=== PATIENT | male | born 1960 | race American Indian/Alaskan Native ===

== ENCOUNTER 2017-02-09 18:18 | Emergency (ER) | payer BC ==
[2017-02-09] MEDS ORDERED: DiphenhydrAMINE 50 mg/ml Inj IVP STA (18:21)
--- NOTE | 2017-02-09 18:24 | ED PDOC ---
Arrival/HPI - General Time Seen by Provider: 02/09/17 18:20 Historian: Patient - History of Present Illness Narrative History of Present Illness (Text): 02/09/17 18:23 56 year old male with a past medical history that includes multiple allergies presents to the emergency department with suspected allergic reaction. Patient reports he is allergic to pepper and may have ate chicken with pepper in it prior to arrival. Patient reports diffuse pruritis and watering of eyes. No fever or other complaints. Patient reports feeling baseline prior to eating chicken. Time/Duration: Prior to Arrival Symptom Onset: Sudden Symptom Course: Unchanged Activities at Onset: Eating Modifying Factors (Text): None Past Medical History - Provider Review Nursing Documentation Reviewed: Yes - Infectious Disease Hx of Infectious Diseases: None - Cardiac Hx Cardiac Disorders: Yes Hx Hypertension: Yes - Pulmonary Hx Respiratory Disorders: Yes Hx Bronchitis: Yes - Neurological Hx Neurological Disorder: Yes Hx Seizures: Yes (As a baby) - HEENT Hx HEENT Disorder: No - Renal Hx Renal Disorder: No - Endocrine/Metabolic Hx Endocrine Disorders: No - Hematological/Oncological Hx Blood Disorders: No - Integumentary Hx Dermatological Disorder: No - Musculoskeletal/Rheumatological Hx Musculoskeletal Disorders: No Hx Falls: No Hx Unsteady Gait: No - Gastrointestinal Hx Gastrointestinal Disorders: Yes (umbilical hernia no sx) Hx Gastroesophageal Reflux: Yes - Genitourinary/Gynecological Hx Genitourinary Disorders: No - Psychiatric Hx Psychophysiologic Disorder: No Hx Substance Use: No - Surgical History Hx Cardiac Catheterization: Yes Hx Orthopedic Surgery: Yes (arthoscopic 1 yr ago r knee) Other/Comment: cyst removed from below left ear negative - Anesthesia Hx Anesthesia: No Hx Anesthesia Reactions: No Hx Malignant Hyperthermia: No - Suicidal Assessment Feels Threatened In Home Enviroment: No Family/Social History - Physician Review Nursing Documentation Reviewed: Yes Family/Social History: Unknown Family HX Smoking Status: Never Smoked Hx Alcohol Use: Yes (social) Hx Substance Use: No Allergies/Home Meds Allergies/Adverse Reactions: Allergies apple Allergy (Verified 02/09/17 18:27) ITCHING fenofibrate nanocrystallized [From Tricor] Allergy (Verified 02/09/17 18:27) ANAPHYLAXIS fenofibrate,micronized [From Tricor] Allergy (Verified 02/09/17 18:27) ANAPHYLAXIS grape Allergy (Verified 02/09/17 18:27) ITCHING ORANGE Allergy (Verified 02/09/17 18:27) ITCHING Penicillins Allergy (Verified 02/09/17 18:27) SWELLING tomato Allergy (Verified 02/09/17 18:27) ITCHING jello Allergy (Uncoded 02/09/17 18:27) ANAPHYLAXIS onions Allergy (Uncoded 02/09/17 18:27) ITCHING pepper Allergy (Uncoded 02/09/17 18:27) ITCHING BLACK PEPPER CONTRAST DYE Adverse Reaction (Severe, Uncoded 02/09/17 18:27) ITCHING TREMORS PEANUT Adverse Reaction (Severe, Uncoded 02/09/17 18:27) SHORTNESS OF BREATH Home Medications: Home Meds Medication Instructions Recorded Confirmed Esomeprazole Magnesium [Nexium] 40 mg PO DAILY 06/04/15 11/16/16 Ezetimibe [Zetia] 10 mg PO DAILY 06/04/1517 Rosuvastatin Calcium [Crestor] 20 mg PO DAILY 04/02/16 11/16/16 Valsartan [Diovan] 320 mg PO DAILY 04/02/16 11/16/16 Review of Systems - Physician Review All systems were reviewed & negative as marked: Yes - Review of Systems Constitutional: absent: Fevers Eyes: Other (Watering of eyes) Respiratory: absent: SOB Cardiovascular: absent: Chest Pain Skin: Pruritis Physical Exam Vital Signs Reviewed: Yes Vital Signs Temp Pulse Resp BP Pulse Ox 02/09/17 19:34 97.8 F 97 H 16 139/81 98 02/09/17 18:50 96 H 20 126/82 96 02/09/17 18:26 98.1 F 101 H 17 133/73 98 Temperature: Afebrile Blood Pressure: Normal Pulse: Tachycardic Respiratory Rate: Normal Appearance: Positive for: Well-Appearing, Non-Toxic, Comfortable Pain Distress: None Mental Status: Positive for: Alert and Oriented X 3 - Systems Exam Head: Present: Atraumatic, Normocephalic Pupils: Present: PERRL Extroacular Muscles: Present: EOMI Conjunctiva: Present: Injected (Mild) Mouth: Present: Moist Mucous Membranes Pharnyx: Present: Normal. No: ERYTHEMA, EXUDATE, TONSILS ENLARGED, Peritonsilar Swelling, Uvular Deviation Neck: Present: Normal Range of Motion Respiratory/Chest: Present: Clear to Auscultation, Good Air Exchange. No: Respiratory Distress, Accessory Muscle Use Cardiovascular: Present: Regular Rate and Rhythm, Normal S1, S2. No: Murmurs Abdomen: Present: Normal Bowel Sounds. No: Tenderness, Distention, Peritoneal Signs Back: Present: Normal Inspection Upper Extremity: Present: Normal Inspection. No: Cyanosis, Edema Lower Extremity: Present: Normal Inspection. No: Edema Neurological: Present: GCS=15, CN II-XII Intact, Speech Normal Skin: Present: Warm, Dry, Normal Color. No: Rashes Psychiatric: Present: Alert, Oriented x 3, Normal Insight, Normal Concentration Medical Decision Making ED Course and Treatment: Impression: 56 year old male with a past medical history that includes multiple allergies presents to the emergency department with suspected allergic reaction Differential Diagnosis include but are not limited to: Plan: -- Benadryl, Pepcid, Soulmedrol -- Reassess and disposition Prior Visits: Notes and results from previous visits were reviewed. Patient last seen in ED on 11/16/16 for chest pain and discharged home. Progress Notes: 02/09/17 19:22 Patient states he is feeling better, asking for discharge paperwork. Patient states he does not want to wait in the ER for further evaluation. Advised pt to follow up with PMD or return if symptoms worsen. Patient stable for discharge. - Medication Orders Current Medication Orders: Discontinued Medications Diphenhydramine HCl (Benadryl) 50 mg IVP STAT STA Stop: 02/09/17 18:22 Last Admin: 02/09/17 18:30 Dose: 50 MG IVP Administration Document 02/09/17 18:30 [facility] (Rec: 02/09/17 18:30 [facility] [id number]) Charges for Administration # of IVP Administrations 1 Famotidine (Pepcid) 20 mg IVP STAT STA Stop: 02/09/17 18:22 Last Admin: 02/09/17 18:31 Dose: 20 MG IVP Administration Document 02/09/17 18:31 [facility] (Rec: 02/09/17 18:31 [facility] [id number]) Charges for Administration # of IVP Administrations 1 Famotidine (Pepcid) Confirm Administered Dose 20 mg .ROUTE .STK-MED ONE Stop: 02/09/17 18:24 Methylprednisolone (Solu-Medrol) 125 mg IVP STAT STA Stop: 02/09/17 18:22 Last Admin: 02/09/17 18:31 Dose: 125 MG IVP Administration Document 02/09/17 18:31 [facility] (Rec: 02/09/17 18:31 [facility] [id number]) Charges for Administration # of IVP Administrations 1 - Scribe Statement The provider has reviewed the documentation as recorded by the Merry Carrasco Provider Scribe Attestation: All medical record entries made by the Judyibraman were at my direction and personally dictated by me. I have reviewed the chart and agree that the record accurately reflects my personal performance of the history, physical exam, medical decision making, and the department course for this patient. I have also personally directed, reviewed, and agree with the discharge instructions and disposition. Disposition/Present on Arrival - Present on Arrival Any Indicators Present on Arrival: No History of DVT/PE: No History of Uncontrolled Diabetes: No Urinary Catheter: No History Surgical Site Infection Following: None - Disposition Have Diagnosis and Disposition been Completed?: Yes Diagnosis: Allergic reaction Disposition: HOME/ ROUTINE Disposition Time: 09:00 Patient Problems: Current Active Problems Problem Status Diagnosed Influenza A Acute Condition: STABLE Discharge Instructions (ExitCare): Allergies (ED) Additional Instructions: please follow up with your doctor. return to er with worsening symptoms or concerns. Prescriptions: DiphenhydrAMINE [Benadryl] 25 mg PO Q6 PRN #20 cap PRN Reason: Itching / Pruritus Epinephrine [Epipen] 0.3 mg IJ ONCE PRN #1 auto.injct PRN Reason: Anaphylaxis Prednisone 50 mg PO DAILY #5 tablet Referrals: Marcela Marcos MD [Primary Care Provider] - Follow up with primary
[2017-02-09 18:29] VITALS: BMI 42.8
[2017-02-09 19:37] VITALS: BP 139/81; PULSE 97; RESP 16; TEMP 97.8; O2SAT 98
== END 2017-02-09 19:36 | disposition home or self-care (01) ==
LOC: ED 18:18
DX: T78.1XXA Other adverse food reactions, not elsewhere classified, initial encounter (principal); X58.XXXA Exposure to other specified factors, initial encounter
CPT/HCPCS: 96374; 96375; 99283; J1200; J2930

== ENCOUNTER 2017-05-20 13:30 | Emergency (ER) | payer BC ==
[2017-05-20 13:30] VITALS: BMI 41.6
[2017-05-20 13:50] VITALS: RESP 18; TEMP 98.2; O2SAT 96
[2017-05-20] MEDS ORDERED: Oxycodone/Acetaminophen 5/325 mg Tab PO STA (14:40)
--- NOTE | 2017-05-20 14:46 | ED PDOC ---
Arrival/HPI - General Chief Complaint: Back Pain Time Seen by Provider: 05/20/17 14:37 Historian: Patient - History of Present Illness Narrative History of Present Illness (Text): 05/20/17 14:40 A 56 year old male, whose past medical history includes multiple allergies, corneal ulcer, and hypertension presents to the emergency department after being injured when trying to be removed from MRI machine. The patient reports that he was getting a MRI for his lower back ordered by his primary doctor. The hyperbaric tech noted that he was too heavy for the machine and upon removal from the machine the tech pulled on the patient and further injured his back. The patient is complaining of pain that is radiating down his right leg. He denies any bowel and bladder dysfunction, or any other complaints at this time. Time/Duration: Prior to Arrival Symptom Onset: Other Symptom Course: Unchanged Severity Level: Mild Activities at Onset: Other Context: Other (In MRI machine) Past Medical History - Provider Review Nursing Documentation Reviewed: Yes - Infectious Disease Hx of Infectious Diseases: None - Cardiac Hx Cardiac Disorders: Yes Hx Hypertension: Yes - Pulmonary Hx Respiratory Disorders: Yes Hx Bronchitis: Yes - Neurological Hx Neurological Disorder: Yes Hx Seizures: Yes (As a baby) - HEENT Hx HEENT Disorder: No - Renal Hx Renal Disorder: No - Endocrine/Metabolic Hx Endocrine Disorders: No - Hematological/Oncological Hx Blood Disorders: No - Integumentary Hx Dermatological Disorder: No - Musculoskeletal/Rheumatological Hx Musculoskeletal Disorders: No Hx Falls: No Hx Unsteady Gait: No - Gastrointestinal Hx Gastrointestinal Disorders: Yes (umbilical hernia no sx) Hx Gastroesophageal Reflux: Yes - Genitourinary/Gynecological Hx Genitourinary Disorders: No - Psychiatric Hx Psychophysiologic Disorder: No Hx Substance Use: No - Surgical History Hx Cardiac Catheterization: Yes Hx Orthopedic Surgery: Yes (arthoscopic 1 yr ago r knee) Other/Comment: cyst removed from below left ear negative - Anesthesia Hx Anesthesia: No Hx Anesthesia Reactions: No Hx Malignant Hyperthermia: No - Suicidal Assessment Feels Threatened In Home Enviroment: No Family/Social History - Physician Review Nursing Documentation Reviewed: Yes Family/Social History: Unknown Family HX Smoking Status: Never Smoked Hx Alcohol Use: Yes (social) Hx Substance Use: No Allergies/Home Meds Allergies/Adverse Reactions: Allergies apple Allergy (Verified 02/09/17 18:27) ITCHING fenofibrate nanocrystallized [From Tricor] Allergy (Verified 02/09/17 18:27) ANAPHYLAXIS fenofibrate,micronized [From Tricor] Allergy (Verified 02/09/17 18:27) ANAPHYLAXIS grape Allergy (Verified 02/09/17 18:27) ITCHING ORANGE Allergy (Verified 02/09/17 18:27) ITCHING Penicillins Allergy (Verified 02/09/17 18:27) SWELLING tomato Allergy (Verified 02/09/17 18:27) ITCHING jello Allergy (Uncoded 02/09/17 18:27) ANAPHYLAXIS onions Allergy (Uncoded 02/09/17 18:27) ITCHING pepper Allergy (Uncoded 02/09/17 18:27) ITCHING BLACK PEPPER CONTRAST DYE Adverse Reaction (Severe, Uncoded 02/09/17 18:27) ITCHING TREMORS PEANUT Adverse Reaction (Severe, Uncoded 02/09/17 18:27) SHORTNESS OF BREATH Home Medications: Home Meds Medication Instructions Recorded Confirmed Esomeprazole Magnesium [Nexium] 40 mg PO DAILY 06/04/15 05/20/17 Ezetimibe [Zetia] 10 mg PO DAILY 06/04/15 05/20/17 Rosuvastatin Calcium [Crestor] 20 mg PO DAILY 04/02/16 05/20/17 Valsartan [Diovan] 320 mg PO DAILY 04/02/16 05/20/17 Review of Systems - Physician Review All systems were reviewed & negative as marked: Yes - Review of Systems Gastrointestinal: Normal. absent: Stool Changes, Diarrhea Genitourinary Male: Normal. absent: Dysuria, Frequency, Hematuria, Urinary Output Changes, Other Musculoskeletal: Back Pain, Other (pain radiating down right leg ) Physical Exam Vital Signs Reviewed: Yes Vital Signs Temp Pulse Resp BP Pulse Ox 05/20/17 15:02 94 H 18 125/74 96 05/20/17 13:50 98.2 F 102 H 18 127/79 96 Temperature: Afebrile Blood Pressure: Normal Pulse: Tachycardic Respiratory Rate: Normal Appearance: Positive for: Well-Appearing, Non-Toxic, Comfortable Pain Distress: Mild Mental Status: Positive for: Alert and Oriented X 3 - Systems Exam Head: Present: Atraumatic, Normocephalic Pupils: Present: PERRL Extroacular Muscles: Present: EOMI Conjunctiva: Present: Normal Mouth: Present: Moist Mucous Membranes Neck: Present: Normal Range of Motion Respiratory/Chest: Present: Clear to Auscultation, Good Air Exchange. No: Respiratory Distress, Accessory Muscle Use Cardiovascular: Present: Regular Rate and Rhythm, Normal S1, S2. No: Murmurs Abdomen: Present: Normal Bowel Sounds. No: Tenderness, Distention, Peritoneal Signs Back: Present: Normal Inspection Upper Extremity: Present: Normal Inspection. No: Cyanosis, Edema Lower Extremity: Present: Normal Inspection, Other (Postral straight to the right leg ). No: Edema Neurological: Present: GCS=15, CN II-XII Intact, Speech Normal Skin: Present: Warm, Dry, Normal Color. No: Rashes Psychiatric: Present: Alert, Oriented x 3, Normal Insight, Normal Concentration Medical Decision Making ED Course and Treatment: 05/20/17 14:40 Impression: A 56 year old male with pain radiating down his right leg. Differential Diagnosis included but are not limited to: Plan: -- Flexeril -- OxyCODONE/Acetaminophin -- Reassess and disposition Prior Visits: Notes and results from previous visits were reviewed. Patient was last seen in the emergency department on Progress Notes: 05/20/17 15:21 Reevaluation: Mr. Rodriguez is feeling better after pain medication and is getting scripts for the same medication. He is instructed to follow up with his primary doctor. - Medication Orders Current Medication Orders: Discontinued Medications Cyclobenzaprine HCl (Flexeril) 10 mg PO STAT STA Stop: 05/20/17 14:41 Last Admin: 05/20/17 14:54 Dose: 10 mg Oxycodone/Acetaminophen (Percocet 5/325 Mg Tab) 2 tab PO STAT STA Stop: 05/20/17 14:41 Last Admin: 05/20/17 14:54 Dose: 2 tab - Scribe Statement The provider has reviewed the documentation as recorded by the Merry Mcmillan Provider Scribe Attestation: All medical record entries made by the Scribe were at my direction and personally dictated by me. I have reviewed the chart and agree that the record accurately reflects my personal performance of the history, physical exam, medical decision making, and the department course for this patient. I have also personally directed, reviewed, and agree with the discharge instructions and disposition. Disposition/Present on Arrival - Present on Arrival Any Indicators Present on Arrival: No History of DVT/PE: No History of Uncontrolled Diabetes: No Urinary Catheter: No History of Decub. Ulcer: No History Surgical Site Infection Following: None - Disposition Have Diagnosis and Disposition been Completed?: Yes Diagnosis: Low back pain Disposition: HOME/ ROUTINE Disposition Time: 15:20 Condition: IMPROVED Discharge Instructions (ExitCare): Acute Low Back Pain (ED) Additional Instructions: Thank you for letting us take care of you today. Your provider was Dr. Maradiaga. You were treated for low back pain. The emergency medical care you received today was directed at your acute symptoms. If you were prescribed any medication, please fill it and take as directed. It may take several days for your symptoms to resolve. Return to the Emergency Department if your symptoms worsen, do not improve, or if you have any other problems. Please contact your doctor or call one of the physicians/clinics you have been referred to that are listed on the Patient Visit Information form that is included in your discharge packet. Bring any paperwork you were given at discharge with you along with any medications you are taking to your follow up visit. Our treatment cannot replace ongoing medical care by a primary care provider (PCP) outside of the emergency department. Thank you for allowing the [facility] team to be part of your care today. Follow up with your doctor in 2-3 days for re-evaluation. Prescriptions: Cyclobenzaprine [Cyclobenzaprine HCl] 10 mg PO Q8 PRN #20 tab PRN Reason: Muscle Spasm oxyCODONE/Acetaminophen [Percocet 5/325 mg Tab] 1 ea PO Q6 PRN #15 tab PRN Reason: Pain, Severe (8-10) Referrals: [facility] Aubrey Smith, [Non-Staff] - Follow up with primary
[2017-05-20 15:03] VITALS: BP 125/74; PULSE 94
== END 2017-05-20 15:37 | disposition home or self-care (01) ==
LOC: ED 13:30
DX: M54.5 Low back pain (principal)

== ENCOUNTER 2018-02-25 05:28 | Emergency (ER) | payer BC ==
[2018-02-25 05:28] VITALS: BMI 41.6
[2018-02-25 05:44] VITALS: O2SAT 98
[2018-02-25] MEDS ORDERED: DiphenhydrAMINE 50 mg/ml Inj IVP ONE (05:57)
--- NOTE | 2018-02-25 06:12 | ED PDOC ---
Arrival/HPI - General Chief Complaint: Allergic Reaction Time Seen by Provider: 02/25/18 05:48 Historian: Patient - History of Present Illness Narrative History of Present Illness (Text): 02/25/18 06:09 57 year old male, with past medical history of multiple allergies, corneal ulcer and hypertension, presents to the Emergency department complaining of urticaria around his neck and chest since prior to arrival. Although patient denies any difficulty breathing, he states that his throat feels funny. Patient informs eating shrimp for dinner and believes it was allergic reaction from the food. Patient currently denies any fever, chills, nausea, vomiting, diarrhea, abdominal pain, chest pain, shortness of breath or any other complaints. Patient presents to the Emergency department for medical evaluation. Time/Duration: Prior to Arrival Symptom Onset: Gradual Symptom Course: Unchanged Activities at Onset: Significant Context: Home Past Medical History - Provider Review Nursing Documentation Reviewed: Yes - Infectious Disease Hx of Infectious Diseases: None - Cardiac Hx Cardiac Disorders: Yes Hx Hypertension: Yes - Pulmonary Hx Respiratory Disorders: Yes Hx Bronchitis: Yes - Neurological Hx Neurological Disorder: Yes Hx Seizures: Yes (As a baby) - HEENT Hx HEENT Disorder: No - Renal Hx Renal Disorder: No - Endocrine/Metabolic Hx Endocrine Disorders: No - Hematological/Oncological Hx Blood Disorders: No - Integumentary Hx Dermatological Disorder: No - Musculoskeletal/Rheumatological Hx Musculoskeletal Disorders: No Hx Falls: No Hx Unsteady Gait: No - Gastrointestinal Hx Gastrointestinal Disorders: Yes (umbilical hernia no sx) Hx Gastroesophageal Reflux: Yes - Genitourinary/Gynecological Hx Genitourinary Disorders: No - Psychiatric Hx Psychophysiologic Disorder: No Hx Substance Use: No - Surgical History Hx Cardiac Catheterization: Yes Hx Orthopedic Surgery: Yes (arthoscopic 1 yr ago r knee) Other/Comment: cyst removed from below left ear negative - Anesthesia Hx Anesthesia: No Hx Anesthesia Reactions: No Hx Malignant Hyperthermia: No - Suicidal Assessment Feels Threatened In Home Enviroment: No Family/Social History - Physician Review Nursing Documentation Reviewed: Yes Family/Social History: No Known Family HX Smoking Status: Never Smoked Hx Alcohol Use: Yes (social) Hx Substance Use: No Allergies/Home Meds Allergies/Adverse Reactions: Allergies apple Allergy (Verified 02/25/18 05:52) ITCHING fenofibrate nanocrystallized [From Tricor] Allergy (Verified 02/25/18 05:52) ANAPHYLAXIS fenofibrate,micronized [From Tricor] Allergy (Verified 02/25/18 05:52) ANAPHYLAXIS grape Allergy (Verified 02/25/18 05:52) ITCHING ORANGE Allergy (Verified 02/25/18 05:52) ITCHING Penicillins Allergy (Verified 02/25/18 05:52) SWELLING tomato Allergy (Verified 02/25/18 05:52) ITCHING jello Allergy (Uncoded 02/25/18 05:52) ANAPHYLAXIS onions Allergy (Uncoded 02/25/18 05:52) ITCHING pepper Allergy (Uncoded 02/25/18 05:52) ITCHING BLACK PEPPER CONTRAST DYE Adverse Reaction (Severe, Uncoded 02/25/18 05:52) ITCHING TREMORS PEANUT Adverse Reaction (Severe, Uncoded 02/25/18 05:52) SHORTNESS OF BREATH Home Medications: Home Meds Medication Instructions Recorded Confirmed Esomeprazole Magnesium [Nexium] 40 mg PO DAILY 06/04/15 05/20/17 Ezetimibe [Zetia] 10 mg PO DAILY 06/04/15 05/20/17 Rosuvastatin Calcium [Crestor] 20 mg PO DAILY 04/02/16 05/20/17 Valsartan [Diovan] 320 mg PO DAILY 04/02/16 05/20/17 Review of Systems - Physician Review All systems were reviewed & negative as marked: Yes - Review of Systems Constitutional: Normal. absent: Fevers Eyes: Normal ENT: Normal Respiratory: Normal. absent: SOB Cardiovascular: Normal. absent: Chest Pain Gastrointestinal: Normal. absent: Abdominal Pain, Diarrhea, Nausea, Vomiting Genitourinary Male: Normal Musculoskeletal: Normal Skin: Other (Urticaria on neck and chest) Neurological: Normal Endocrine: Normal Hemo/Lymphatic: Normal Psychiatric: Normal Physical Exam Vital Signs Reviewed: Yes Vital Signs Temp Pulse Resp BP Pulse Ox 02/25/18 06:38 98.0 F 96 H 17 150/88 98 02/25/18 05:43 97.8 F 102 H 18 143/82 98 Temperature: Afebrile Blood Pressure: Normal Pulse: Tachycardic Respiratory Rate: Normal Appearance: Positive for: Well-Appearing, Non-Toxic, Comfortable Pain Distress: None Mental Status: Positive for: Alert and Oriented X 3 - Systems Exam Head: Present: Atraumatic, Normocephalic Pupils: Present: PERRL Extroacular Muscles: Present: EOMI Conjunctiva: Present: Normal Respiratory/Chest: Present: Clear to Auscultation, Good Air Exchange. No: Respiratory Distress, Accessory Muscle Use Cardiovascular: Present: Regular Rate and Rhythm, Normal S1, S2. No: Murmurs Abdomen: No: Tenderness, Distention, Peritoneal Signs Upper Extremity: Present: Normal Inspection. No: Cyanosis, Edema Lower Extremity: Present: Normal Inspection. No: Edema Neurological: Present: GCS=15, CN II-XII Intact, Speech Normal Skin: Present: Warm, Dry, Rashes (On chest and neck area), Normal Color Psychiatric: Present: Alert, Oriented x 3, Normal Insight, Normal Concentration Medical Decision Making ED Course and Treatment: 02/25/18 06:13 Impression: 57 year old male presents to the Emergency department for allergic reaction to shrimp. Differential Diagnosis included but are not limited to: allergic reaction Plan: -- Benadryl -- Prednisolone -- Reassess and dispositio Progress Notes: - Medication Orders Current Medication Orders: Discontinued Medications Diphenhydramine HCl (Benadryl) 25 mg IVP ONCE ONE Stop: 02/25/18 05:58 Last Admin: 02/25/18 06:04 Dose: 25 mg IVP Administration Document 02/25/18 06:04 IT (Rec: 02/25/18 06:04 IT [id number]) Charges for Administration # of IVP Administrations 1 Methylprednisolone (Solu-Medrol) 125 mg IVP ONCE ONE Stop: 02/25/18 05:58 Last Admin: 02/25/18 06:04 Dose: 125 mg IVP Administration Document 02/25/18 06:04 IT (Rec: 02/25/18 06:04 IT [id number]) Charges for Administration # of IVP Administrations 1 - Scribe Statement The provider has reviewed the documentation as recorded by the Judyibraman Antony. All medical record entries made by the Scribe were at my direction and personally dictated by me. I have reviewed the chart and agree that the record accurately reflects my personal performance of the history, physical exam, medical decision making, and the department course for this patient. I have also personally directed, reviewed, and agree with the discharge instructions and disposition. Disposition/Present on Arrival - Present on Arrival Any Indicators Present on Arrival: No History of DVT/PE: No History of Uncontrolled Diabetes: No Urinary Catheter: No History of Decub. Ulcer: No History Surgical Site Infection Following: None - Disposition Have Diagnosis and Disposition been Completed?: Yes Diagnosis: Allergic reaction Disposition: HOME/ ROUTINE Disposition Time: 06:40 Condition: GOOD Discharge Instructions (ExitCare): Food Allergy Prescriptions: hydrOXYzine HCl [Atarax] 25 mg PO Q8H #21 tab predniSONE [predniSONE Tab] 20 mg PO TID #15 tab Referrals: Marcela Marcos MD [Primary Care Provider] - Follow up with primary Forms: [facility] (Citizen [place])
[2018-02-25 06:40] VITALS: BP 150/88; PULSE 96; RESP 17; TEMP 98
== END 2018-02-25 06:40 | disposition home or self-care (01) ==
LOC: ED 05:28
DX: T78.40XA Allergy, unspecified, initial encounter (principal); I10 Essential (primary) hypertension
CPT/HCPCS: 96374; 96375; 99283; J1200; J2930

== ENCOUNTER 2018-04-11 05:03 | Observation (INO) | payer BC ==
[2018-04-11 05:03] VITALS: BMI 41.6
[2018-04-11] MEDS ORDERED: Nitroglycerin 2% Ointment Foilpak UD TOP STA (05:27)
--- NOTE | 2018-04-11 05:33 | ED PDOC ---
Arrival/HPI - General Chief Complaint: Chest Pain Time Seen by Provider: 04/11/18 05:08 Historian: Patient - History of Present Illness Narrative History of Present Illness (Text): 04/11/18 05:29 57 year old male, whose past medical history includes hypertension and hyperlipidemia, presents to the Emergency department complaining of left sided chest discomfort which began earlier this morning. Patient also reports tingling to his hands. According to the patient, he has been having a history of exterional dyspnea. Patient denies any fevers, chills, cough, shortness of breath, abdominal pain, nausea, vomiting, diarrhea, back pain, neck pain, leg/ arm weakness, urinary symptoms, headache, dizziness, or any other complaint. Symptom Onset: Sudden Symptom Course: Unchanged Activities at Onset: Light Context: Home Past Medical History - Provider Review Nursing Documentation Reviewed: Yes - Infectious Disease Hx of Infectious Diseases: None - Cardiac Hx Cardiac Disorders: Yes Hx Hypertension: Yes - Pulmonary Hx Respiratory Disorders: Yes Hx Bronchitis: Yes - Neurological Hx Neurological Disorder: Yes Hx Seizures: Yes (As a baby) - HEENT Hx HEENT Disorder: No - Renal Hx Renal Disorder: No - Endocrine/Metabolic Hx Endocrine Disorders: No - Hematological/Oncological Hx Blood Disorders: No - Integumentary Hx Dermatological Disorder: No - Musculoskeletal/Rheumatological Hx Musculoskeletal Disorders: No Hx Falls: No Hx Unsteady Gait: No - Gastrointestinal Hx Gastrointestinal Disorders: Yes (umbilical hernia no sx) Hx Gastroesophageal Reflux: Yes - Genitourinary/Gynecological Hx Genitourinary Disorders: No - Psychiatric Hx Psychophysiologic Disorder: No Hx Substance Use: No - Surgical History Hx Cardiac Catheterization: Yes Hx Orthopedic Surgery: Yes (arthoscopic 1 yr ago r knee) Other/Comment: cyst removed from below left ear negative - Anesthesia Hx Anesthesia: No Hx Anesthesia Reactions: No Hx Malignant Hyperthermia: No - Suicidal Assessment Feels Threatened In Home Enviroment: No Family/Social History - Physician Review Nursing Documentation Reviewed: Yes Family/Social History: No Known Family HX Smoking Status: Never Smoked Hx Alcohol Use: Yes (social) Hx Substance Use: No Allergies/Home Meds Allergies/Adverse Reactions: Allergies apple Allergy (Verified 02/25/18 05:52) ITCHING fenofibrate nanocrystallized [From Tricor] Allergy (Verified 02/25/18 05:52) ANAPHYLAXIS fenofibrate,micronized [From Tricor] Allergy (Verified 02/25/18 05:52) ANAPHYLAXIS grape Allergy (Verified 02/25/18 05:52) ITCHING ORANGE Allergy (Verified 02/25/18 05:52) ITCHING Penicillins Allergy (Verified 02/25/18 05:52) SWELLING tomato Allergy (Verified 02/25/18 05:52) ITCHING jello Allergy (Uncoded 02/25/18 05:52) ANAPHYLAXIS onions Allergy (Uncoded 02/25/18 05:52) ITCHING pepper Allergy (Uncoded 02/25/18 05:52) ITCHING BLACK PEPPER CONTRAST DYE Adverse Reaction (Severe, Uncoded 02/25/18 05:52) ITCHING TREMORS PEANUT Adverse Reaction (Severe, Uncoded 02/25/18 05:52) SHORTNESS OF BREATH Home Medications: Home Meds Medication Instructions Recorded Confirmed Esomeprazole Magnesium [Nexium] 40 mg PO DAILY 06/04/15 05/20/17 Ezetimibe [Zetia] 10 mg PO DAILY 06/04/15 05/20/17 Rosuvastatin Calcium [Crestor] 20 mg PO DAILY 04/02/16 05/20/17 Valsartan [Diovan] 320 mg PO DAILY 04/02/16 05/20/17 Review of Systems - Physician Review All systems were reviewed & negative as marked: Yes - Review of Systems Constitutional: absent: Fevers, Other (Chills) Respiratory: absent: SOB, Cough Cardiovascular: Chest Pain, LESLIE Gastrointestinal: absent: Diarrhea, Nausea, Vomiting Genitourinary Male: absent: Dysuria, Frequency, Hematuria Musculoskeletal: absent: Back Pain, Neck Pain Neurological: Other (tingling to both hands). absent: Headache, Dizziness Physical Exam Vital Signs Reviewed: Yes Vital Signs Temp Pulse Resp BP Pulse Ox 04/11/18 05:14 98.1 F 112 H 20 192/120 H 98 Temperature: Afebrile Blood Pressure: Hypertensive Pulse: Tachycardic Respiratory Rate: Normal Appearance: Positive for: Well-Appearing, Non-Toxic, Comfortable Pain Distress: None Mental Status: Positive for: Alert and Oriented X 3 - Systems Exam Head: Present: Atraumatic, Normocephalic Pupils: Present: PERRL Extroacular Muscles: Present: EOMI Conjunctiva: Present: Normal Mouth: Present: Moist Mucous Membranes Neck: Present: Normal Range of Motion Respiratory/Chest: Present: Clear to Auscultation, Good Air Exchange. No: Respiratory Distress, Accessory Muscle Use Cardiovascular: Present: Regular Rate and Rhythm, Normal S1, S2. No: Murmurs Abdomen: No: Tenderness, Distention, Peritoneal Signs Back: Present: Normal Inspection Upper Extremity: Present: Normal Inspection. No: Cyanosis, Edema Lower Extremity: Present: Normal Inspection. No: Edema Neurological: Present: GCS=15, CN II-XII Intact, Speech Normal, Motor Func Grossly Intact, Normal Sensory Function Skin: Present: Warm, Dry, Normal Color. No: Rashes Psychiatric: Present: Alert, Oriented x 3, Normal Insight, Normal Concentration Medical Decision Making ED Course and Treatment: 04/11/18 05:36 Impression: 57 year old male presents complaining of lift-sided chest discomfort which began earlier this morning associated with tingling to his hands. Patient also reports history of dyspnea on exertion. Plan: -- EKG -- Chest X-ray -- Labs -- Aspirin, Nitro-Bid -- Reassess and disposition Prior Visits: Notes and results from previous visits were reviewed. Progress Notes: EKG shows Sinus Tachycardia at 109 BPM with LAHP and non-specific ST/T changes. Interpreted by me. 04/11/18 05:56 CXR Impression: As read by me, no acute process. 04/11/18 07:[address] Marcos, who is aware and agrees with emergency department management plan, accepts patient to Telemetry Observation and requests to contact Dr. Frost for consult. - Lab Interpretations Lab Results: 04/11/18 05:25 04/11/18 05:25 Lab Results 04/11/18 05:25: WBC 10.0 D, RBC 4.72, Hgb 13.8 L, Hct 41.0 L, MCV 86.9, MCH 29.2, MCHC 33.7, RDW 14.9 H, Plt Count 212, MPV 10.2 04/11/18 05:25: Sodium 144, Potassium 4.0, Chloride 106, Carbon Dioxide 23, Anion Gap 19, BUN 20, Creatinine 1.9 H, Est GFR ( Amer) 45, Est GFR (Non- Af Amer) 37, Random Glucose 137 H, Calcium 9.6, Total Bilirubin 0.7, AST 175 H, ALT 123 H, Alkaline Phosphatase 189 H, Lactate Dehydrogenase 649, Total Creatine Kinase 212, Troponin I < 0.01, NT-Pro-B Natriuret Pep 18.8, Total Protein 8.1, Albumin 4.6, Globulin 3.5, Albumin/Globulin Ratio 1.3 04/11/18 05:25: PT 11.7, INR 1.02, APTT 35.4, D-Dimer, Quantitative 106 I have reviewed the lab results: Yes - RAD Interpretation Radiology Orders: 04/11/18 05:40 CHEST PORTABLE [RAD] Stat - EKG Interpretation Interpreted by ED Physician: Yes Type: 12 lead EKG - Medication Orders Current Medication Orders: Discontinued Medications Aspirin (Aspirin) 325 mg PO ONCE STA Stop: 04/11/18 05:28 Nitroglycerin (Nitro-Bid 2% Oint) 1 ea TOP ONCE STA Stop: 04/11/18 05:28 - Scribe Statement The provider has reviewed the documentation as recorded by the Merry Hdz Provider Scribe Attestation: All medical record entries made by the Merry were at my direction and personally dictated by me. I have reviewed the chart and agree that the record accurately reflects my personal performance of the history, physical exam, medical decision making, and the department course for this patient. I have also personally directed, reviewed, and agree with the discharge instructions and disposition. Disposition/Present on Arrival - Present on Arrival Any Indicators Present on Arrival: No History of DVT/PE: No History of Uncontrolled Diabetes: No Urinary Catheter: No History of Decub. Ulcer: No History Surgical Site Infection Following: None - Disposition Have Diagnosis and Disposition been Completed?: Yes Diagnosis: Chest pain Disposition: HOSPITALIZED Disposition Time: 07:15 Patient Problems: Current Active Problems Problem Status Onset Chest pain Acute Condition: STABLE Discharge Instructions (ExitCare): Chest Pain (ED) Forms: [employer] (Croatian)
[2018-04-11 05:50] LABS: HEMOGLOBIN 13.8 g/dL (14.0-18.0); MEAN CELL VOLUME 86.9 fl (80.0-105.0); MEAN CORPUSCULAR HEMOGLOBIN 29.2 pg (25.0-35.0); MEAN CORPUSCULAR HGB CONC 33.7 g/dl (31.0-37.0); MEAN PLATELET VOLUME 10.2 fl (7.0-11.0); RBC 4.72 10^6/uL (3.5-6.1); RED CELL DISTRIBUTION WIDTH 14.9 % (11.5-14.5)
[2018-04-11 05:57] LABS: ALB/GLOB RATIO 1.3 (1.1-1.8); ALBUMIN 4.6 g/dL (3.0-4.8); ALT/SGPT 123 U/L (7-56); AST/SGOT 175 U/L (17-59); BLOOD UREA NITROGEN 20 mg/dL (7-21); CALCIUM 9.6 mg/dL (8.4-10.5); GFR AFRICAN-AMERICAN 45; GFR NON-AFRICAN AMERICAN 37
[2018-04-11 06:09] LABS: B-TYPE NATRIURETIC PEPTIDE 18.8 pg/mL (0-450); TROPONIN I < 0.01 ng/mL
[2018-04-11 06:16] LABS: INR 1.02 (0.93-1.08); PARTIAL THROMBOPLASTIN TIME 35.4 Seconds (25.1-36.5); PROTHROMBIN TIME 11.7 SECONDS (9.4-12.5)
--- NOTE | 2018-04-11 09:40 | RAD ---
HISTORY: chest pain COMPARISON: 11/16/2016 FINDINGS: LUNGS: No active pulmonary disease. PLEURA: No significant pleural effusion identified, no pneumothorax apparent. CARDIOVASCULAR: Normal. OSSEOUS STRUCTURES: Thoracic spondylosis-similar VISUALIZED UPPER ABDOMEN: Normal. OTHER FINDINGS: None. IMPRESSION: No active disease.
[2018-04-11 09:58] VITALS: O2SAT 97
[2018-04-11 11:27] VITALS: BP 135/91
[2018-04-11 11:36] VITALS: PULSE 73; RESP 22; TEMP 98.2
--- NOTE | 2018-04-11 17:00 | CARD ---
APPROVED REPORT EKG Measurement Heart [id number] <Conclusion> Sinus tachycardia Left anterior fascicular block Abnormal ECG
--- NOTE | 2018-04-11 23:59 | HP ---
HISTORY OF PRESENT ILLNESS: The patient is 57 years old, came to emergency room because of chest discomfort, bilateral hand numbness, also complained of retrosternal discomfort, complained of having numbness in both hands. The patient does admit drinking alcohol. He had 3 shots yesterday afternoon and he also used to take Protonix, but stopped taking it. Denies any nausea or vomiting. No associated dizziness. Does complain of shortness of breath on walking up hill. Currently, he feels okay. PAST MEDICAL HISTORY: 1. Significant for hypertension. 2. Hyperlipidemia. 3. Hypertriglyceridemia. 4. Peptic ulcer disease. 5. Morbid obesity. 6. Chronic back pain. 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 ALLERGIES: HE IS ALLERGIC TO APPLE, FENOFIBRATE, GRAPES, ORANGE, PENICILLIN, TOMATO, JELLO, ONION, PEPPER, CONTRAST DYE AND PEANUTS. MEDICATION AT HOME: He is on hydralazine 25 twice a day, valsartan 320 daily, Percocet as needed, He is on tramadol for breakthrough pain. He is on Crestor 20 mg daily, omeprazole 40 mg daily, eyedrops and Zetia 10 mg daily and dicyclomine and cyclobenzaprine for his back pain. SOCIAL HISTORY: He is , lives with his . Currently, he drinks almost every day. Denies smoking. REVIEW OF SYSTEMS: Currently, he feels okay. No nausea, vomiting, or diarrhea. No chest pain. PHYSICAL EXAMINATION GENERAL: He is awake, alert, oriented, communicative. VITAL SIGNS: He is afebrile. Pulse 73, respirations 22, blood pressure 135/91. LUNGS: Bilateral fair airflow. No rhonchi or crackle. HEART: S1, S2, audible. No murmur. ABDOMEN: Soft, nontender. No rebound. No guarding. NEUROLOGIC: He is awake, alert, oriented, communicative. LABORATORY DATA: WBC is 10, hemoglobin 13, hematocrit 41, platelet of 212. PT 11.7, INR 11.02. Chemistry, sodium 134, potassium 4.0, chloride 106, CO2 of 23, BUN 20, creatinine 1.9, blood sugar of 137, AST 175, ALT 123, alkaline phosphatase 189, troponin is negative. X-ray of chest is unremarkable. ASSESSMENT AND PLAN: 1. Left-sided chest pain radiation to the left arm and bilateral hand tingling. 2. History of gastroesophageal reflux disease. 3. Morbid obesity. 4. Hypertension. 5. Hyperlipidemia. 6. Hypertriglyceridemia. The patient had stress test done in 06/2015 and at that point, it was unremarkable. PLAN: We will follow 3 sets of cardiac enzymes, awaiting Cardiology evaluation. I will order for abdominal sonogram. Dr. Leonides Frost and Dr. Patel has been consulted, awaiting their input, might be discharged later on today if his 3 sets of troponins are negative. Marcela Marcos MD
--- NOTE | 2018-04-12 00:34 | CON ---
DATE: 04/11/2018 CARDIOLOGY CONSULTATION HISTORY OF PRESENT ILLNESS: The patient is a 57-year-old male with a history of hypertension and peptic ulcer disease who is noncompliant with his medication, came in with a transient epigastric discomfort. His symptoms have since resolved since taking his peptic ulcer disease. MEDICATIONS: There is no diabetes mellitus noted. PREVIOUS CARDIAC HISTORY: No previous cardiac history noted. The patient had a stress test in the past with Dr. Lancaster. (I asked whether he would like me to call Dr. Lancaster to see him in consult and him and his said no to just continue seeing him.) SOCIAL HISTORY: The patient does not smoke. FAMILY HISTORY: His mother has had angioplasty recently, who is in the age 80s. REVIEW OF SYSTEMS: Fourteen-point review of systems is reviewed in detail. No cardiac symptoms are noted. PHYSICAL EXAMINATION: VITAL SIGNS: Stable. NECK: Negative JVD. LUNGS: Without rales. HEART: With S1, S2. EXTREMITIES: Without edema. DIAGNOSTIC DATA: EKG is unremarkable. LABORATORY DATA: Troponins are negative x2. IMPRESSION: 1. Epigastric discomfort. 2. Atypical chest pain. 3. No evidence for acute coronary syndrome. 4. Hypertension. 5. Obesity. PLAN: Given these findings, there is no evidence for acute coronary syndrome. We will continue the patient on his peptic ulcer medications. We will arrange for an outpatient stress test, which the patient and are agreeable. I have discussed this with Dr. Marcos. Leonides Frost MD
[2018-04-12] MEDS ORDERED: Pantoprazole 40 mg EC Tab PO SCH (07:30)
== END 2018-04-11 16:03 | disposition home or self-care (01) ==
LOC: ED 05:03 → ERH 07:33 → 2RSO 10:07
PROVIDERS: ADMIT Internal Medicine; ATTEND Internal Medicine
DX: R07.89 Other chest pain (principal); K27.9 Peptic ulcer, site unspecified, unspecified as acute or chronic, without hemorrhage or perforation; I10 Essential (primary) hypertension; E66.01 Morbid (severe) obesity due to excess calories; Z68.41 Body mass index [BMI] 40.0-44.9, adult; E78.1 Pure hyperglyceridemia; E78.5 Hyperlipidemia, unspecified; K21.9 Gastro-esophageal reflux disease without esophagitis; Z91.14 Patient's other noncompliance with medication regimen

== ENCOUNTER 2018-05-11 01:14 | Emergency (ER) | payer BC ==
[2018-05-11 01:14] VITALS: BMI 41.6
[2018-05-11 01:41] VITALS: TEMP 98.7
--- NOTE | 2018-05-11 02:04 | ED PDOC ---
Arrival/HPI - General Chief Complaint: Chest Pain Time Seen by Provider: 05/11/18 01:55 Historian: Patient - History of Present Illness Narrative History of Present Illness (Text): 05/11/18 02:04 57 year old male, whose past medical history includes hypertension and hyperlipidemia, presents to the emergency department complaining of lump to the left armpit and sore throat and neck pain for the past 3 days. Patient saw his PMD who states the patient's throat and neck were just inflamed and was given antibiotics for it. PMD also states the lump was from a sweat gland. Patient states he did not receive the antibiotics from the PMD. He also took 2 Tylenol with relief. Patient denies any heavy lifting and denies any other complaints. Patient denies any fever, chills, chest pain, shortness of breath, nausea, vomiting, diarrhea, urinary symptoms, back pain, neck pain, headache, dizziness , or any other complaints. Time/Duration: Other (3 days) Symptom Onset: Gradual Symptom Course: Improving Activities at Onset: Light Context: Home Past Medical History - Provider Review Nursing Documentation Reviewed: Yes - Infectious Disease Hx of Infectious Diseases: None - Cardiac Hx Cardiac Disorders: Yes Hx Hypertension: Yes - Pulmonary Hx Respiratory Disorders: Yes Hx Bronchitis: Yes - Neurological Hx Neurological Disorder: Yes Hx Seizures: Yes (As a baby) - HEENT Hx HEENT Disorder: No - Renal Hx Renal Disorder: No - Endocrine/Metabolic Hx Endocrine Disorders: No - Hematological/Oncological Hx Blood Disorders: No - Integumentary Hx Dermatological Disorder: No - Musculoskeletal/Rheumatological Hx Musculoskeletal Disorders: No Hx Falls: No Hx Unsteady Gait: No - Gastrointestinal Hx Gastrointestinal Disorders: Yes (umbilical hernia no sx) Hx Gastroesophageal Reflux: Yes - Genitourinary/Gynecological Hx Genitourinary Disorders: No - Psychiatric Hx Psychophysiologic Disorder: No Hx Substance Use: No - Surgical History Hx Cardiac Catheterization: Yes Hx Orthopedic Surgery: Yes (arthoscopic 1 yr ago r knee) Other/Comment: cyst removed from below left ear negative - Anesthesia Hx Anesthesia: No Hx Anesthesia Reactions: No Hx Malignant Hyperthermia: No - Suicidal Assessment Feels Threatened In Home Enviroment: No Family/Social History - Physician Review Nursing Documentation Reviewed: Yes Family/Social History: No Known Family HX Smoking Status: Never Smoked Hx Alcohol Use: Yes (social) Hx Substance Use: No Allergies/Home Meds Allergies/Adverse Reactions: Allergies apple Allergy (Verified 05/11/18 01:29) ITCHING fenofibrate nanocrystallized [From Tricor] Allergy (Verified 05/11/18 01:29) ANAPHYLAXIS fenofibrate,micronized [From Tricor] Allergy (Verified 05/11/18 01:29) ANAPHYLAXIS grape Allergy (Verified 05/11/18 01:29) ITCHING ORANGE Allergy (Verified 05/11/18 01:29) ITCHING Penicillins Allergy (Verified 05/11/18 01:29) SWELLING tomato Allergy (Verified 05/11/18 01:29) ITCHING jello Allergy (Uncoded 05/11/18 01:29) ANAPHYLAXIS onions Allergy (Uncoded 05/11/18 01:29) ITCHING pepper Allergy (Uncoded 05/11/18:29) ITCHING BLACK PEPPER CONTRAST DYE Adverse Reaction (Severe, Uncoded 05/11/18 01:29) ITCHING TREMORS PEANUT Adverse Reaction (Severe, Uncoded 05/11/18 01:29) SHORTNESS OF BREATH Home Medications: Home Meds Medication Instructions Recorded Confirmed Esomeprazole Magnesium [Nexium] 40 mg PO DAILY 06/04/15 05/20/17 Ezetimibe [Zetia] 10 mg PO DAILY 06/04/15 05/20/17 Rosuvastatin Calcium [Crestor] 20 mg PO DAILY 04/02/16 05/20/17 Valsartan [Diovan] 320 mg PO DAILY 04/02/16 05/20/17 Review of Systems - Physician Review All systems were reviewed & negative as marked: Yes - Review of Systems Constitutional: absent: Fevers, Other (Chills) ENT: Sore Throat (radiates to neck) Respiratory: absent: SOB Cardiovascular: absent: Chest Pain Gastrointestinal: absent: Diarrhea, Nausea, Vomiting Genitourinary Male: absent: Dysuria, Frequency, Hematuria Musculoskeletal: absent: Back Pain, Neck Pain Skin: Other (lump on left armpit ) Neurological: absent: Headache, Dizziness Physical Exam Vital Signs Reviewed: Yes Vital Signs Temp Pulse Resp BP Pulse Ox 05/11/18 02:15 89 17 129/80 99 05/11/18 01:41 98.7 F 98 H 18 134/86 97 Temperature: Afebrile Blood Pressure: Normal Pulse: Regular Respiratory Rate: Normal Appearance: Positive for: Well-Appearing, Non-Toxic, Comfortable Pain Distress: None Mental Status: Positive for: Alert and Oriented X 3 - Systems Exam Head: Present: Atraumatic, Normocephalic Pupils: Present: PERRL Extroacular Muscles: Present: EOMI Conjunctiva: Present: Normal Mouth: Present: Moist Mucous Membranes Pharnyx: Present: Normal Neck: Present: Normal Range of Motion Respiratory/Chest: Present: Clear to Auscultation, Good Air Exchange. No: Respiratory Distress, Accessory Muscle Use Cardiovascular: Present: Regular Rate and Rhythm, Normal S1, S2. No: Murmurs Abdomen: No: Tenderness, Distention, Peritoneal Signs Back: Present: Normal Inspection Upper Extremity: Present: Tenderness, Erythema, Other (1cm mass to the left axilla.). No: Cyanosis, Edema Lower Extremity: Present: Normal Inspection. No: Edema Neurological: Present: GCS=15, CN II-XII Intact, Speech Normal Skin: Present: Warm, Dry, Normal Color. No: Rashes Psychiatric: Present: Alert, Oriented x 3, Normal Insight, Normal Concentration Medical Decision Making ED Course and Treatment: 05/11/18 02:04 Impression: 57 year old male presents complaining of mass to the left armpit and sore throat and neck pain. Plan: -- Reassess and disposition Prior Visits: Notes and results from previous visits were reviewed. Progress Notes: Recommended patient to call PMD to receive antibiotics that were not sent to pharmacy. Patient with no chest pain- pain is in his neck and just distal to it , both anterior and posterior. He also has no dizziness, headache, or dyspnea. L axilla mass noted, recommended monitoring this for now. Patient already saw his PMD earlier today. He has an appointment for a stress test next week, as he was recently admitted here for chest pain. I have discussed the results and plan with the patient, who expresses understanding. Patient in agreement with plan to be discharged home. Patient is stable for discharge. Patient was instructed to follow up with physician or return if symptoms worsen or new concerning symptoms arise. 05/11/18 04:46 - Scribe Statement The provider has reviewed the documentation as recorded by the Merry Hdz Provider Scribe Attestation: All medical record entries made by the Merry were at my direction and personally dictated by me. I have reviewed the chart and agree that the record accurately reflects my personal performance of the history, physical exam, medical decision making, and the department course for this patient. I have also personally directed, reviewed, and agree with the discharge instructions and disposition. Disposition/Present on Arrival - Present on Arrival Any Indicators Present on Arrival: No History of DVT/PE: No History of Uncontrolled Diabetes: No Urinary Catheter: No History of Decub. Ulcer: No History Surgical Site Infection Following: None - Disposition Have Diagnosis and Disposition been Completed?: Yes Diagnosis: Sore throat, Mass of left axilla Disposition: HOME/ ROUTINE Disposition Time: 02:15 Condition: GOOD Discharge Instructions (ExitCare): Sore Throat, Adult (DC) Additional Instructions: JARET MEHTA JR, thank you for letting us take care of you today. Your provider was Yajaira Padilla MD and you were treated for chest pain. The emergency medical care you received today was directed at your acute symptoms. If you were prescribed any medication, please fill it and take as directed. It may take several days for your symptoms to resolve. Return to the Emergency Department if your symptoms worsen, do not improve, or if you have any other problems. Please contact your doctor or call one of the physicians/clinics you have been referred to that are listed on the Patient Visit Information form that is included in your discharge packet. Bring any paperwork you were given at discharge with you along with any medications you are taking to your follow up visit. Our treatment cannot replace ongoing medical care by a primary care provider outside of the emergency department. Thank you for allowing the [facility] team to be part of your care today. If you had an X-Ray or CT scan: A Radiologist will review the ED reading if any change in treatment is needed we will contact you. If you had a blood, urine, or wound culture: It will take several days for the results, if any change in treatment is needed we will contact you. If you had an STI test: It will take 48 hours for the results. Please call after 1 week if you have not heard back. Referrals: Marcela Marcos MD [Primary Care Provider] - Follow up with primary Forms: [employer] (French)
[2018-05-11 02:16] VITALS: BP 129/80; PULSE 89; RESP 17; O2SAT 99
--- NOTE | 2018-05-11 17:34 | CARD ---
APPROVED REPORT Date of service: 05/11/2018 EKG Measurement Heart [id number] <Conclusion> Sinus tachycardia with premature supraventricular complexes Left anterior fascicular block Abnormal ECG
== END 2018-05-11 02:15 | disposition home or self-care (01) ==
LOC: ED 01:14
DX: J02.9 Acute pharyngitis, unspecified (principal); R22.32 Localized swelling, mass and lump, left upper limb; I10 Essential (primary) hypertension; E78.5 Hyperlipidemia, unspecified

== ENCOUNTER 2018-07-06 09:56 | Emergency (ER) | payer BC ==
[2018-07-06 09:56] VITALS: BMI 41.6
[2018-07-06 10:32] VITALS: RESP 18; TEMP 98.3
--- NOTE | 2018-07-06 10:58 | ED PDOC ---
Arrival/HPI - General Chief Complaint: Abdominal Pain Time Seen by Provider: 07/06/18 10:57 Historian: Patient, Spouse - History of Present Illness Narrative History of Present Illness (Text): 07/06/18 10:58 A 57 year old female, whose past medical history includes acid reflux, hyperlipidemia, and hypertension, presents to the emergency department complaining of abdominal pain since yesterday. Patient reports experiencing associated vomiting and also reports sinus discomfort last week but notes no current symptoms. Patient reports he has been taken medication for acid reflux and has run out of medication. Patient also notes he does not takes medication for hypertension. Patient denies any fever, chills, shortness of breath, chest pain, diarrhea, nausea, urinary symptoms, back pain, neck pain, headache, dizziness, or any other complaints. PMD: Dr. Marcos Time/Duration: Other (yesterday) Symptom Onset: Gradual Activities at Onset: Light Context: Home Past Medical History - Provider Review Nursing Documentation Reviewed: Yes - Infectious Disease Hx of Infectious Diseases: None - Cardiac Hx Cardiac Disorders: Yes Hx Hypertension: Yes - Pulmonary Hx Respiratory Disorders: Yes Hx Bronchitis: Yes - Neurological Hx Neurological Disorder: Yes Hx Seizures: Yes (As a baby) - HEENT Hx HEENT Disorder: No - Renal Hx Renal Disorder: No - Endocrine/Metabolic Hx Endocrine Disorders: No - Hematological/Oncological Hx Blood Disorders: No - Integumentary Hx Dermatological Disorder: No - Musculoskeletal/Rheumatological Hx Musculoskeletal Disorders: No Hx Falls: No Hx Unsteady Gait: No - Gastrointestinal Hx Gastrointestinal Disorders: Yes (umbilical hernia no sx) Hx Gastroesophageal Reflux: Yes - Genitourinary/Gynecological Hx Genitourinary Disorders: No - Psychiatric Hx Psychophysiologic Disorder: No Hx Substance Use: No - Surgical History Hx Cardiac Catheterization: Yes Hx Orthopedic Surgery: Yes (arthoscopic 1 yr ago r knee) Other/Comment: cyst removed from below left ear negative - Anesthesia Hx Anesthesia: No Hx Anesthesia Reactions: No Hx Malignant Hyperthermia: No - Suicidal Assessment Feels Threatened In Home Enviroment: No Family/Social History - Physician Review Nursing Documentation Reviewed: Yes Family/Social History: Unknown Family HX Smoking Status: Never Smoked Hx Alcohol Use: Yes (social) Hx Substance Use: No Allergies/Home Meds Allergies/Adverse Reactions: Allergies apple Allergy (Verified 07/06/18 10:25) ITCHING fenofibrate nanocrystallized [From Tricor] Allergy (Verified 07/06/18 10:25) ANAPHYLAXIS fenofibrate,micronized [From Tricor] Allergy (Verified 07/06/18 10:25) ANAPHYLAXIS grape Allergy (Verified 07/06/18 10:25) ITCHING ORANGE Allergy (Verified 07/06/18 10:25) ITCHING Penicillins Allergy (Verified 07/06/18 10:25) SWELLING tomato Allergy (Verified 07/06/18 10:25) ITCHING jello Allergy (Uncoded 07/06/18 10:25) ANAPHYLAXIS onions Allergy (Uncoded 07/06/18 10:25) ITCHING pepper Allergy (Uncoded 07/06/18 10:25) ITCHING BLACK PEPPER CONTRAST DYE Adverse Reaction (Severe, Uncoded 07/06/18 10:25) ITCHING TREMORS PEANUT Adverse Reaction (Severe, Uncoded 07/06/18 10:25) SHORTNESS OF BREATH Home Medications: Home Meds Medication Instructions Recorded Confirmed Ezetimibe [Zetia] 10 mg PO DAILY 06/04/15 07/06/18 Rosuvastatin Calcium [Crestor] 20 mg PO DAILY 04/02/16 07/06/18 Valsartan [Diovan] 320 mg PO DAILY 04/02/16 07/06/18 Review of Systems - Physician Review All systems were reviewed & negative as marked: Yes - Review of Systems Constitutional: absent: Fevers, Night Sweats ENT: Sinus Congestion (+sinus discomfort). absent: Normal, Hearing Changes, Tinnitus, TMJ Pain, Voice Changes, Sore Throat, Rhinorrhea, Epistaxis Respiratory: absent: SOB Cardiovascular: absent: Chest Pain Gastrointestinal: Abdominal Pain, Vomiting. absent: Diarrhea Genitourinary Male: absent: Urinary Output Changes Musculoskeletal: absent: Back Pain, Neck Pain Neurological: absent: Headache, Dizziness Physical Exam Vital Signs Reviewed: Yes Vital Signs Temp Pulse Resp BP Pulse Ox 07/06/18 12:35 90 18 136/82 100 07/06/18 09:57 98.3 F 96 H 18 132/61 96 Temperature: Afebrile Blood Pressure: Normal Pulse: Tachycardic Respiratory Rate: Normal Appearance: Positive for: Well-Appearing, Non-Toxic, Comfortable Pain Distress: None Mental Status: Positive for: Alert and Oriented X 3 - Systems Exam Head: Present: Atraumatic, Normocephalic Pupils: Present: PERRL Extroacular Muscles: Present: EOMI Conjunctiva: Present: Normal Mouth: Present: Moist Mucous Membranes Neck: Present: Normal Range of Motion Respiratory/Chest: Present: Clear to Auscultation, Good Air Exchange. No: Respiratory Distress, Accessory Muscle Use Cardiovascular: Present: Regular Rate and Rhythm, Normal S1, S2. No: Murmurs Abdomen: Present: Tenderness (+epigastric tenderness). No: Distention, Normal Bowel Sounds, Peritoneal Signs, Rebound, Guarding, McBurney's Point Tender, Rovsing's Sign Present, Hernias, Feeding Tubes, Ostomy Tubes, Mass/Organomegaly , Scars Back: Present: Normal Inspection Upper Extremity: Present: Normal Inspection. No: Cyanosis, Edema Lower Extremity: Present: Normal Inspection. No: Edema Neurological: Present: GCS=15, CN II-XII Intact, Speech Normal Skin: Present: Warm, Dry, Normal Color. No: Rashes Psychiatric: Present: Alert, Oriented x 3, Normal Insight, Normal Concentration Medical Decision Making ED Course and Treatment: 07/06/18 11:01 Impression: 57 year old male presents to the emergency department complaining of abdominal pain. Plan: -- BMP -- Troponin I -- CBC -- Chest X-ray -- Reassess and disposition Prior Visits: Notes and results from previous visits were reviewed. Patient was last seen in the emergency department on 05/11/18 for chest pain and was discharged when symptoms. Progress Notes: Patient given 20mg pepcid ivp. 07/06/18 12:30 Dictator: Anthony Springer MD Procedure: Chest X-ray Impression: No active disease. No significant interval change compared to the prior examination(s). Labs, XR and EKG reviewed and were unremarkable. Results discussed with patient. Patient states that pain has subsided and has no further complaints. Will write Rx for omeprazole as patient is out. Advised outpatient followup. - Lab Interpretations Lab Results: 07/06/18 11:20 07/06/18 11:20 Lab Results 07/06/18 11:20: Sodium 140, Potassium 3.8, Chloride 105, Carbon Dioxide 26, Anion Gap 12, BUN 15, Creatinine 1.6 H, Est GFR ( Amer) 54, Est GFR (Non- Af Amer) 45, Random Glucose 134 H, Calcium 9.1, Troponin I < 0.01 07/06/18 11:20: WBC 6.3 D, RBC 4.52, Hgb 12.9 L, Hct 38.4 L, MCV 85.0, MCH 28.5 , MCHC 33.6, RDW 15.3 H, Plt Count 157, MPV 9.4, Gran % 65.5, Lymph % (Auto) 26.8, Dade % (Auto) 7.3 H, Eos % (Auto) 0.2 L, Baso % (Auto) 0.2, Gran # 4.14, Lymph # (Auto) 1.7, Dade # (Auto) 0.5, Eos # (Auto) 0.0, Baso # (Auto) 0.01 - RAD Interpretation Radiology Orders: 07/06/18 10:59 CHEST PORTABLE [RAD] Stat - EKG Interpretation EKG Interpretation (Text): 07/06/18 10:32 NSR rate 96, LAD, widened QRS 126, prolonged QTc 126, no ST/T changes - Medication Orders Current Medication Orders: Discontinued Medications Famotidine (Pepcid) 20 mg IVP STAT STA Stop: 07/06/18 11:23 Last Admin: 07/06/18 11:31 Dose: 20 mg IVP Administration Document 07/06/18 11:31 EQ (Rec: 07/06/18 11:32 EQ [id number]) Charges for Administration # of IVP Administrations 1 - Scribe Statement The provider has reviewed the documentation as recorded by the Merry Goodrich All medical record entries made by the Scribe were at my direction and personally dictated by me. I have reviewed the chart and agree that the record accurately reflects my personal performance of the history, physical exam, medical decision making, and the department course for this patient. I have also personally directed, reviewed, and agree with the discharge instructions and disposition. Disposition/Present on Arrival - Present on Arrival Any Indicators Present on Arrival: No History of DVT/PE: No History of Uncontrolled Diabetes: No Urinary Catheter: No History of Decub. Ulcer: No History Surgical Site Infection Following: None - Disposition Have Diagnosis and Disposition been Completed?: Yes Diagnosis: GERD (gastroesophageal reflux disease) Disposition: HOME/ ROUTINE Disposition Time: 12:44 Condition: GOOD Discharge Instructions (ExitCare): Acid Reflux (Gastroesophageal Reflux Disease ), Adult (DC) Additional Instructions: JARETKRYSTAL MEHTA JR, thank you for letting us take care of you today. Your provider was Yajaira Padilla MD and you were treated for HEADACHE. The emergency medical care you received today was directed at your acute symptoms. If you were prescribed any medication, please fill it and take as directed. It may take several days for your symptoms to resolve. Return to the Emergency Department if your symptoms worsen, do not improve, or if you have any other problems. Please contact your doctor or call one of the physicians/clinics you have been referred to that are listed on the Patient Visit Information form that is included in your discharge packet. Bring any paperwork you were given at discharge with you along with any medications you are taking to your follow up visit. Our treatment cannot replace ongoing medical care by a primary care provider outside of the emergency department. Thank you for allowing the [facility] team to be part of your care today. If you had an X-Ray or CT scan: A Radiologist will review the ED reading if any change in treatment is needed we will contact you. If you had a blood, urine, or wound culture: It will take several days for the results, if any change in treatment is needed we will contact you. If you had an STI test: It will take 48 hours for the results. Please call after 1 week if you have not heard back. Prescriptions: Omeprazole 20 mg PO DAILY #10 tab.rap. Referrals: Marcela Marcos MD [Primary Care Provider] - Follow up with primary Forms: [employer]) (Romansh), WORK NOTE
[2018-07-06 11:28] LABS: BASO # 0.01 K/mm3 (0.0-2.0); BASO % 0.2 % (0.0-3.0); EOS % 0.2 % (1.5-5.0); GRAN # 4.14 (1.4-6.5); GRAN % 65.5 % (50.0-68.0); HEMOGLOBIN 12.9 g/dL (14.0-18.0); LYMPH # 1.7 (1.2-3.4); LYMPH % 26.8 % (22.0-35.0); MEAN CORPUSCULAR HEMOGLOBIN 28.5 pg (25.0-35.0); MEAN CORPUSCULAR HGB CONC 33.6 g/dl (31.0-37.0); MEAN PLATELET VOLUME 9.4 fl (7.0-11.0); MONO # 0.5 (0.1-0.6); MONO % 7.3 % (1.0-6.0); RBC 4.52 10^6/uL (3.5-6.1); RED CELL DISTRIBUTION WIDTH 15.3 % (11.5-14.5); WHITE BLOOD COUNT 6.3 10^3/ul (4.5-11.0)
[2018-07-06 11:37] LABS: BLOOD UREA NITROGEN 15 mg/dL (7-21); CALCIUM 9.1 mg/dL (8.4-10.5); GFR NON-AFRICAN AMERICAN 45
[2018-07-06 11:50] LABS: TROPONIN I < 0.01 ng/mL
--- NOTE | 2018-07-06 12:22 | RAD ---
Date of service: 07/06/2018 HISTORY: chest pain COMPARISON: 04/11/2018. FINDINGS: LUNGS: No active pulmonary disease. PLEURA: No significant pleural effusion identified, no pneumothorax apparent. CARDIOVASCULAR: No radiographic findings to suggest acute or significant cardiovascular disease. OSSEOUS STRUCTURES: No significant abnormalities. VISUALIZED UPPER ABDOMEN: Normal. OTHER FINDINGS: None. IMPRESSION: No active disease. No significant interval change compared to the prior examination(s).
[2018-07-06 12:36] VITALS: BP 136/82; PULSE 90; O2SAT 100
--- NOTE | 2018-07-06 16:05 | CARD ---
APPROVED REPORT Date of service: 07/06/2018 EKG Measurement Heart [id number] <Conclusion> Normal sinus rhythm Left axis deviation Nonspecific intraventricular block Cannot rule out Anterior infarct, age undetermined Abnormal ECG
== END 2018-07-06 12:44 | disposition home or self-care (01) ==
LOC: ED 09:56
DX: K21.9 Gastro-esophageal reflux disease without esophagitis (principal); I10 Essential (primary) hypertension; E78.5 Hyperlipidemia, unspecified

== ENCOUNTER 2018-10-14 08:33 | Emergency (ER) | payer BC ==
[2018-10-14 08:33] VITALS: BMI 41.6
--- NOTE | 2018-10-14 09:38 | ED PDOC ---
Arrival/HPI - General Chief Complaint: Lower Extremity Problem/Injury Time Seen by Provider: 10/14/18 09:29 Historian: Patient - History of Present Illness Narrative History of Present Illness (Text): 10/14/18 09:34 A 58 year old male, whose past medical history includes hypertension, presents to the emergency department with a complaint of left pinky toe pain. The patient notes that he feels like he can not move his toe. He also reports walking on his heel because he feels pain to the foot when walking normally. The patient denies trauma/ injury, fevers, chills, headache, dizziness, chest pain, shortness of breath, dyspnea on exertion, cough, abdominal pain, nausea, vomiting, diarrhea, back pain, neck pain, urinary/bowel changes, or any other complaint. Time/Duration: Other (Last night) Symptom Onset: Sudden Symptom Course: Unchanged Activities at Onset: Rest, Light Context: Home Past Medical History - Provider Review Nursing Documentation Reviewed: Yes - Infectious Disease Hx of Infectious Diseases: None - Cardiac Hx Cardiac Disorders: Yes Hx Hypertension: Yes - Pulmonary Hx Respiratory Disorders: Yes Hx Bronchitis: Yes - Neurological Hx Neurological Disorder: Yes Hx Seizures: Yes (As a baby) - HEENT Hx HEENT Disorder: No - Renal Hx Renal Disorder: No - Endocrine/Metabolic Hx Endocrine Disorders: No - Hematological/Oncological Hx Blood Disorders: No - Integumentary Hx Dermatological Disorder: No - Musculoskeletal/Rheumatological Hx Musculoskeletal Disorders: No Hx Falls: No Hx Unsteady Gait: No - Gastrointestinal Hx Gastrointestinal Disorders: Yes (umbilical hernia no sx) Hx Gastroesophageal Reflux: Yes - Genitourinary/Gynecological Hx Genitourinary Disorders: No - Psychiatric Hx Psychophysiologic Disorder: No Hx Substance Use: No - Surgical History Hx Cardiac Catheterization: Yes Hx Orthopedic Surgery: Yes (arthoscopic 1 yr ago r knee) Other/Comment: cyst removed from below left ear negative - Anesthesia Hx Anesthesia: No Hx Anesthesia Reactions: No Hx Malignant Hyperthermia: No - Suicidal Assessment Feels Threatened In Home Enviroment: No Family/Social History - Physician Review Nursing Documentation Reviewed: Yes Family/Social History: No Known Family HX Smoking Status: Never Smoked Hx Alcohol Use: Yes (social) Frequency of alcohol use: Socially Hx Substance Use: No Allergies/Home Meds Allergies/Adverse Reactions: Allergies apple Allergy (Verified 10/14/18 08:42) ITCHING fenofibrate nanocrystallized [From Tricor] Allergy (Verified 10/14/18 08:42) ANAPHYLAXIS fenofibrate,micronized [From Tricor] Allergy (Verified 10/14/18 08:42) ANAPHYLAXIS grape Allergy (Verified 10/14/18 08:42) ITCHING ORANGE Allergy (Verified 10/14/18 08:42) ITCHING Penicillins Allergy (Verified 10/14/18 08:42) SWELLING tomato Allergy (Verified 10/14/18 08:42) ITCHING jello Allergy (Uncoded 10/14/18 08:42) ANAPHYLAXIS onions Allergy (Uncoded 10/14/18 08:42) ITCHING pepper Allergy (Uncoded 10/14/18 08:42) ITCHING BLACK PEPPER CONTRAST DYE Adverse Reaction (Severe, Uncoded 10/14/18 08:42) ITCHING TREMORS PEANUT Adverse Reaction (Severe, Uncoded 10/14/18 08:42) SHORTNESS OF BREATH Home Medications: Home Meds Medication Instructions Recorded Confirmed Ezetimibe [Zetia] 10 mg PO DAILY 06/04/15 10/14/18 Rosuvastatin Calcium [Crestor] 20 mg PO DAILY 04/02/16 10/14/18 Valsartan [Diovan] 320 mg PO DAILY 04/02/16 10/14/18 Review of Systems - Physician Review All systems were reviewed & negative as marked: Yes - Review of Systems Constitutional: absent: Fevers Respiratory: absent: SOB, Cough Cardiovascular: absent: Chest Pain, LESLIE Gastrointestinal: absent: Abdominal Pain, Stool Changes, Diarrhea, Nausea, Vomiting Genitourinary Male: absent: Urinary Output Changes Musculoskeletal: Other (Left pinky toe pain.). absent: Back Pain, Neck Pain Neurological: absent: Headache, Dizziness Physical Exam - Physical Exam Narrative Physical Exam (Text): 10/14/18 09:39 Gen: VS reviewed, alert, well developed, well nourished, nontoxic, mild distress. ENT: normal pharynx. Eye: EOMI, PERRL. Neck: no JVD, supple, no adenopathy. CV: regular rate, regular rhythm, no rubs, no murmur, no gallops, S1, S2, pulses equal and strong. Pulm: no distress, clear to auscultation, no wheeze, no rhonchi, breath sounds equal, no rales. Abd: soft, nontender, no guarding, no rebound, no rigidity, normal bowel sounds. Ext: no edema. Left foot: no redness, no cellulitic skin changes, tenderness around the toe and on the sole aspect of the toe. Skin: good color, no rash, no cyanosis. Psych: responds appropriately to questions, normal affect. Neuro: oriented x 3, CN2-12 intact grossly, motor intact, sensation intact. Vital Signs Reviewed: Yes Vital Signs Temp Pulse Resp BP Pulse Ox 10/14/18 08:40 98.1 F 92 H 18 122/76 97 Temperature: Afebrile Blood Pressure: Normal Pulse: Tachycardic Respiratory Rate: Normal Appearance: Positive for: Well-Appearing, Non-Toxic, Comfortable Pain Distress: None Mental Status: Positive for: Alert and Oriented X 3 Medical Decision Making ED Course and Treatment: 10/14/18 09:41 Impression: A 58 year old male presents to the emergency department with a complaint of left pinky toe pain. Plan: -- Left Foot X- Ray -- Labs -- Reassess and disposition Prior Visits: Notes and results from previous visits were reviewed. Progress Notes: 10/14/18 10:57 patient seen for focal pain at the left 5th toe. with the elevated uric acid, the clinical picture is consistent with gout. will tx with prednisone, avoid nsaids, refer to pcp for further tx - Lab Interpretations I have reviewed the lab results: Yes - Scribe Statement The provider has reviewed the documentation as recorded by the Merry Sloan Provider Scribe Attestation: All medical record entries made by the Scribraman were at my direction and personally dictated by me. I have reviewed the chart and agree that the record accurately reflects my personal performance of the history, physical exam, medical decision making, and the department course for this patient. I have also personally directed, reviewed, and agree with the discharge instructions and disposition. Disposition/Present on Arrival - Present on Arrival Any Indicators Present on Arrival: No History of DVT/PE: No History of Uncontrolled Diabetes: No Urinary Catheter: No History of Decub. Ulcer: No History Surgical Site Infection Following: None - Disposition Have Diagnosis and Disposition been Completed?: Yes Diagnosis: Gout Disposition: HOME/ ROUTINE Disposition Time: 11:00 Patient Plan: Discharge Patient Problems: Current Active Problems Problem Status Onset Gout Acute Condition: STABLE Discharge Instructions (ExitCare): Gout, Lifestyle Changes to Manage Gout Additional Instructions: Return for any new or worsening symptoms. JARET MEHTA JR, thank you for letting us take care of you today. Your provider was Dr. Mika Lang and you were treated for foot gout. The emergency medical care you received today was directed at your acute symptoms. If you were prescribed any medication, please fill it and take as directed. It may take several days for your symptoms to resolve. Return to the Emergency Department if your symptoms worsen, do not improve, or if you have any other problems. Please contact your doctor or call one of the physicians/clinics you have been referred to that are listed on the Patient Visit Information form that is included in your discharge packet. Bring any paperwork you were given at discharge with you along with any medications you are taking to your follow up visit. Our treatment cannot replace ongoing medical care by a primary care provider outside of the emergency department. Thank you for allowing the [facility] team to be part of your care today. If you had an X-Ray or CT scan: A Radiologist will review the ED reading if any change in treatment is needed we will contact you. If you had a blood, urine, or wound culture: It will take several days for the results, if any change in treatment is needed we will contact you. If you had an STI test: It will take 48 hours for the results. Please call after 1 week if you have not heard back. Prescriptions: oxyCODONE/Acetaminophen [Percocet 5/325 mg Tab] 1 ea PO QID 3 Days #12 tab predniSONE [predniSONE Tab] 10 mg PO DAILY 10 Days #42 tab Sennosides/Docusate Sodium [Colace 2-in-1 Tablet] 2 each PO BID 7 Days #14 tablet Forms: [email or web address] (Azeri), WORK NOTE
[2018-10-14 10:20] LABS: ALB/GLOB RATIO 1.2 (1.1-1.8); ALBUMIN 4.4 g/dL (3.0-4.8); CALCIUM 9.4 mg/dL (8.4-10.5); URIC ACID 8.8 mg/dL (3.5-8.5)
[2018-10-14 11:35] VITALS: BP 123/53; PULSE 75; RESP 19; TEMP 98; O2SAT 100
--- NOTE | 2018-10-14 13:40 | RAD ---
PROCEDURE: Left Foot Radiographs. HISTORY: pain, focus pinky toe and surrounding tissue COMPARISON: None available. FINDINGS: Marked soft tissue swelling predominantly involving the 5th digit. Suboptimal evaluation of the 4th and 5th digits the level the proximal shafts due to positioning. Fractures at this level are not excluded. No evidence of radiopaque foreign body. The remainder the visualized osseous structures appear intact. IMPRESSION: Marked soft tissue swelling predominantly involving the 5th digit. Suboptimal evaluation of the 4th and 5th digits at the level of the proximal shafts due to positioning. Fractures at this level are not excluded.
== END 2018-10-14 11:36 | disposition home or self-care (01) ==
LOC: ED 08:33
DX: M10.9 Gout, unspecified (principal); I10 Essential (primary) hypertension

== ENCOUNTER 2018-10-30 08:00 | Emergency (ER) | payer BC ==
[2018-10-30 08:06] VITALS: BMI 40.7
[2018-10-30 08:18] VITALS: TEMP 98.7
--- NOTE | 2018-10-30 08:31 | ED PDOC ---
Arrival/HPI - General Chief Complaint: Chest Pain Time Seen by Provider: 10/30/18 08:02 Historian: Patient - History of Present Illness Narrative History of Present Illness (Text): 10/30/18 08:28 58 year old male, whose past medical history includes acid reflux, hyperlipidemia, and hypertension, presents to the emergency department complaining of left sided chest pain for the past 2 days. Patient describes the pain as constant and worsens with exertion. He notes associated diaphoresis in his hands. Patient denies fevers, chills, headache, dizziness, shortness of breath, dyspnea on exertion, cough, abdominal pain, nausea, vomiting, diarrhea, back pain, neck pain, or any other complaint. PMD: Perveen Time/Duration: < week Symptom Course: Unchanged Activities at Onset: Light Context: Home Past Medical History - Provider Review Nursing Documentation Reviewed: Yes - Infectious Disease Hx of Infectious Diseases: None - Cardiac Hx Cardiac Disorders: Yes Hx Hypertension: Yes - Pulmonary Hx Respiratory Disorders: Yes Hx Bronchitis: Yes - Neurological Hx Neurological Disorder: Yes Hx Seizures: Yes (As a baby) - HEENT Hx HEENT Disorder: No - Renal Hx Renal Disorder: No - Endocrine/Metabolic Hx Endocrine Disorders: No - Hematological/Oncological Hx Blood Disorders: No - Integumentary Hx Dermatological Disorder: No - Musculoskeletal/Rheumatological Hx Musculoskeletal Disorders: No Hx Unsteady Gait: No - Gastrointestinal Hx Gastrointestinal Disorders: Yes (umbilical hernia no sx) Hx Gastroesophageal Reflux: Yes - Genitourinary/Gynecological Hx Genitourinary Disorders: No - Psychiatric Hx Psychophysiologic Disorder: No Hx Substance Use: No - Surgical History Hx Cardiac Catheterization: Yes Hx Orthopedic Surgery: Yes (arthoscopic 1 yr ago r knee) Other/Comment: cyst removed from below left ear negative - Anesthesia Hx Anesthesia: No Hx Anesthesia Reactions: No Hx Malignant Hyperthermia: No - Suicidal Assessment Feels Threatened In Home Enviroment: No Family/Social History - Physician Review Nursing Documentation Reviewed: Yes Family/Social History: No Known Family HX Smoking Status: Never Smoked Hx Alcohol Use: Yes (social) Hx Substance Use: No Allergies/Home Meds Allergies/Adverse Reactions: Allergies apple Allergy (Verified 10/14/18 08:42) ITCHING fenofibrate nanocrystallized [From Tricor] Allergy (Verified 10/14/18 08:42) ANAPHYLAXIS fenofibrate,micronized [From Tricor] Allergy (Verified 10/14/18 08:42) ANAPHYLAXIS grape Allergy (Verified 10/14/18 08:42) ITCHING ORANGE Allergy (Verified 10/14/18 08:42) ITCHING Penicillins Allergy (Verified 10/14/18 08:42) SWELLING tomato Allergy (Verified 10/14/18 08:42) ITCHING jello Allergy (Uncoded 10/14/18 08:42) ANAPHYLAXIS onions Allergy (Uncoded 10/14/18 08:42) ITCHING pepper Allergy (Uncoded 10/14/18 08:42) ITCHING BLACK PEPPER CONTRAST DYE Adverse Reaction (Severe, Uncoded 10/14/18 08:42) ITCHING TREMORS PEANUT Adverse Reaction (Severe, Uncoded 10/14/18 08:42) SHORTNESS OF BREATH Home Medications: Home Meds Medication Instructions Recorded Confirmed Ezetimibe [Zetia] 10 mg PO DAILY 06/04/15 10/14/18 Rosuvastatin Calcium [Crestor] 20 mg PO DAILY 04/02/16 10/14/18 Valsartan [Diovan] 320 mg PO DAILY 04/02/16 10/14/18 Review of Systems - Physician Review All systems were reviewed & negative as marked: Yes - Review of Systems Constitutional: absent: Fevers Respiratory: absent: SOB, Cough Cardiovascular: Chest Pain Gastrointestinal: absent: Abdominal Pain, Diarrhea, Nausea, Vomiting Genitourinary Male: absent: Dysuria Musculoskeletal: absent: Back Pain, Neck Pain Neurological: absent: Headache, Dizziness Endocrine: Diaphoresis (in hands ) Physical Exam - Physical Exam Narrative Physical Exam (Text): 10/30/18 08:32 Gen: VS reviewed, alert, well developed, well nourished, nontoxic, mild distress. ENT: normal pharynx. Eye: EOMI, PERRL. Neck: no JVD, supple, no adenopathy. Chest: mild to moderate tenderness to the left chest wall. CV: regular rate, regular rhythm, no rubs, no murmur, no gallops, S1, S2, pulses equal and strong. Pulm: no distress, clear to auscultation, no wheeze, no rhonchi, breath sounds equal, no rales. Abd: soft, nontender, no guarding, no rebound, no rigidity, normal bowel sounds. Ext: no edema. Pain with Abduction and extension to the left shoulder. Skin: good color, no rash, no cyanosis. Psych: responds appropriately to questions, normal affect. Neuro: oriented x 3, CN2-12 intact grossly, motor intact, sensation intact. Vital Signs Reviewed: Yes Vital Signs Temp Pulse Resp BP Pulse Ox 10/30/18 08:00 98.7 F 98 H 20 114/73 96 Temperature: Afebrile Blood Pressure: Normal Pulse: Tachycardic Respiratory Rate: Normal Appearance: Positive for: Well-Appearing, Non-Toxic, Comfortable Pain Distress: None Mental Status: Positive for: Alert and Oriented X 3 Medical Decision Making ED Course and Treatment: 10/30/18 08:34 Impression: 58 year old male who presents to the emergency department complaining of left sided chest pain. Plan: -- EKG -- Labs -- Chest X-ray -- Toradol -- Reassess and disposition Prior Visits: Notes and results from previous visits were reviewed. Progress Notes: 10/30/18 09:55 patient was seen for constant (over 24 hours) of left sided chest wall pain after strenuous activity. clearly reproducible to palpation and exacerbated with active ROM of the left shoulder. clinical presentation consistent with MSK origin of pain. with negative trop and noniscehmic ekg, it is very unlikely that the patient's pain is contributed to ACS. there was no significant clinical suspicion for aortic dissection or PE. patient remained stable throughout ED course. patient understand and is agreeable with plan and to follow up with cardiology. - Lab Interpretations I have reviewed the lab results: Yes - RAD Interpretation Narrative RAD Interpretations (Text): 10/30/18 09:32 cxr my read: no focal infiltrate, no ptx, no wide mediastinum Glazing Department Supervisor: ED Physician - EKG Interpretation EKG Interpretation (Text): 10/30/18 08:07 EKG reviewed, shows: NSR at 100bpm, with normal QRS, LAFB, and poor r wave progression. No acute st/t wave abnormality. Interpreted by ED Physician: Yes Type: 12 lead EKG - Scribe Statement The provider has reviewed the documentation as recorded by the Scribe Margaret Melendez Provider Scribe Attestation: All medical record entries made by the Scribe were at my direction and personally dictated by me. I have reviewed the chart and agree that the record accurately reflects my personal performance of the history, physical exam, medical decision making, and the department course for this patient. I have also personally directed, reviewed, and agree with the discharge instructions and disposition. Disposition/Present on Arrival - Present on Arrival Any Indicators Present on Arrival: No History of DVT/PE: No History of Uncontrolled Diabetes: No Urinary Catheter: No History of Decub. Ulcer: No History Surgical Site Infection Following: None - Disposition Have Diagnosis and Disposition been Completed?: Yes Diagnosis: Chest wall pain Disposition: HOME/ ROUTINE Disposition Time: 09:58 Patient Plan: Discharge Condition: STABLE Discharge Instructions (ExitCare): Chest Pain (ED) Additional Instructions: -return for any new or worsening symptoms. -follow up with the marine rigger as soon as possible-call tomorrow to make an appointment-you may need follow up testing such as stress test. -your live enzymes were mildly elevated. you have discuss the results with your doctor as soon as possible and perhaps have the numbers rechecked in 1-2 weeks. Referrals: Leonides Frost MD [Staff Provider] - Follow up with primary Forms: [facility] (Al[place]ian)
[2018-10-30 08:43] LABS: BASO # 0.02 K/mm3 (0.0-2.0); BASO % 0.2 % (0.0-3.0); EOS % 0.3 % (1.5-5.0); GRAN # 6.25 (1.4-6.5); GRAN % 65.8 % (50.0-68.0); LYMPH # 2.6 (1.2-3.4); LYMPH % 27.8 % (22.0-35.0); MEAN CELL VOLUME 86.2 fl (80.0-105.0); MEAN CORPUSCULAR HEMOGLOBIN 28.5 pg (25.0-35.0); MEAN CORPUSCULAR HGB CONC 33.1 g/dl (31.0-37.0); MEAN PLATELET VOLUME 9.4 fl (7.0-11.0); MONO # 0.6 (0.1-0.6); MONO % 5.9 % (1.0-6.0); RBC 4.21 10^6/uL (3.5-6.1); RED CELL DISTRIBUTION WIDTH 15.3 % (11.5-14.5); WHITE BLOOD COUNT 9.5 10^3/uL (4.5-11.0)
[2018-10-30 08:50] LABS: INR 1.06; PARTIAL THROMBOPLASTIN TIME 34.6 Seconds (25.1-36.5); PROTHROMBIN TIME 12.2 SECONDS (9.4-12.5)
[2018-10-30 09:08] LABS: TROPONIN I < 0.01 ng/mL
[2018-10-30 09:10] LABS: LDL CHOLESTEROL 65 mg/dL (0-129)
[2018-10-30 09:12] LABS: ALB/GLOB RATIO 1.3 (1.1-1.8); ALBUMIN 4.5 g/dL (3.0-4.8); ALT/SGPT 151 U/L (7-56); AST/SGOT 133 U/L (17-59); BLOOD UREA NITROGEN 43 mg/dL (7-21); CALCIUM 9.6 mg/dL (8.4-10.5); GFR NON-AFRICAN AMERICAN 19; HDL CHOLESTEROL 55 mg/dL (29-60)
[2018-10-30 09:57] VITALS: BP 118/74; PULSE 84; RESP 18; O2SAT 98
--- NOTE | 2018-10-30 10:31 | RAD ---
Date of service: 10/30/2018 HISTORY: chest pain COMPARISON: Chest radiograph dated 07/06/2018. FINDINGS: LUNGS: No active pulmonary disease. PLEURA: No significant pleural effusion identified, no pneumothorax apparent. CARDIOVASCULAR: Aortic atherosclerotic calcifications. Cardiomediastinal silhouette stably enlarged. OSSEOUS STRUCTURES: Unchanged. VISUALIZED UPPER ABDOMEN: Normal. OTHER FINDINGS: None. IMPRESSION: No active disease.
--- NOTE | 2018-10-30 14:21 | CARD ---
APPROVED REPORT Date of service: 10/30/2018 EKG Measurement Heart [id number] <Conclusion> Normal sinus rhythm Left anterior fascicular block Abnormal ECG
== END 2018-10-30 10:22 | disposition home or self-care (01) ==
LOC: ED 08:00
DX: R07.89 Other chest pain (principal); E78.5 Hyperlipidemia, unspecified; I10 Essential (primary) hypertension
CPT/HCPCS: 71045; 80053; 80061; 84484; 85025; 85610; 85730; 93005; 96374; 99284; J1885

== ENCOUNTER 2019-01-29 00:30 | Observation (INO) | payer BC ==
[2019-01-29 00:30] VITALS: BMI 40.7
--- NOTE | 2019-01-29 00:49 | ED PDOC ---
Arrival/HPI - General Chief Complaint: Chest Pain Time Seen by Provider: 01/29/19 00:33 Historian: Patient - History of Present Illness Narrative History of Present Illness (Text): 01/29/19 00:57 58 year old male, whose past medical history includes hypertension and hyperlipidemia, presents to the emergency department for intermittent right sided chest pain for the past couple of days. Patient informs this evening he began feeling numbness to his fingers and toes at times. Patient denies any headache, dizziness, focal weakness, or shortness of breath. Patient also denies any abdominal pain, nausea, vomiting, diaphoresis, or any other complaints. Time/Duration: Prior to Arrival, 1 week Symptom Onset: Gradual Symptom Course: Intermittent Activities at Onset: Light Context: Home Past Medical History - Provider Review Nursing Documentation Reviewed: Yes - Infectious Disease Hx of Infectious Diseases: None - Cardiac Hx Cardiac Disorders: Yes Hx Hypertension: Yes - Pulmonary Hx Respiratory Disorders: Yes Hx Bronchitis: Yes - Neurological Hx Neurological Disorder: Yes Hx Seizures: Yes (As a baby) - HEENT Hx HEENT Disorder: No - Renal Hx Renal Disorder: No - Endocrine/Metabolic Hx Endocrine Disorders: No - Hematological/Oncological Hx Blood Disorders: No - Integumentary Hx Dermatological Disorder: No - Musculoskeletal/Rheumatological Hx Musculoskeletal Disorders: No Hx Unsteady Gait: No - Gastrointestinal Hx Gastrointestinal Disorders: Yes (umbilical hernia no sx) Hx Gastroesophageal Reflux: Yes - Genitourinary/Gynecological Hx Genitourinary Disorders: No - Psychiatric Hx Psychophysiologic Disorder: No Hx Substance Use: No - Surgical History Hx Cardiac Catheterization: Yes Hx Orthopedic Surgery: Yes (arthoscopic 1 yr ago r knee) Other/Comment: cyst removed from below left ear negative - Anesthesia Hx Anesthesia: No Hx Anesthesia Reactions: No Hx Malignant Hyperthermia: No - Suicidal Assessment Feels Threatened In Home Enviroment: No Family/Social History - Physician Review Nursing Documentation Reviewed: Yes Family/Social History: No Known Family HX Smoking Status: Never Smoked Hx Alcohol Use: Yes (social) Hx Substance Use: No Allergies/Home Meds Allergies/Adverse Reactions: Allergies apple Allergy (Verified 01/29/19 00:45) ITCHING fenofibrate nanocrystallized [From Tricor] Allergy (Verified 01/29/19 00:45) ANAPHYLAXIS fenofibrate,micronized [From Tricor] Allergy (Verified 01/29/19 00:45) ANAPHYLAXIS grape Allergy (Verified 01/29/19 00:45) ITCHING ORANGE Allergy (Verified 01/29/19 00:45) ITCHING Penicillins Allergy (Verified 01/29/19 00:45) SWELLING tomato Allergy (Verified 01/29/19 00:45) ITCHING jello Allergy (Uncoded 01/29/19 00:45) ANAPHYLAXIS onions Allergy (Uncoded 01/29/19 00:45) ITCHING pepper Allergy (Uncoded 01/29/19 00:45) ITCHING BLACK PEPPER CONTRAST DYE Adverse Reaction (Severe, Uncoded 01/29/19 00:45) ITCHING TREMORS PEANUT Adverse Reaction (Severe, Uncoded 01/29/19 00:45) SHORTNESS OF BREATH Home Medications: Home Meds Medication Instructions Recorded Confirmed Ezetimibe [Zetia] 10 mg PO DAILY 06/04/15 01/29/19 Rosuvastatin Calcium [Crestor] 20 mg PO DAILY 04/02/16 01/29/19 Valsartan [Diovan] 320 mg PO DAILY 04/02/16 01/29/19 Review of Systems - Physician Review All systems were reviewed & negative as marked: Yes - Review of Systems Respiratory: absent: SOB Cardiovascular: Chest Pain Gastrointestinal: absent: Abdominal Pain, Nausea, Vomiting Neurological: absent: Headache, Dizziness, Focal Weakness, Other (No numbness) Physical Exam Vital Signs Reviewed: Yes Vital Signs Temp Pulse Resp BP Pulse Ox 01/29/19 00:42 98.9 F 117 H 18 130/81 100 Temperature: Afebrile Blood Pressure: Normal Pulse: Tachycardic Respiratory Rate: Normal Appearance: Positive for: Well-Appearing, Non-Toxic, Comfortable Pain Distress: None Mental Status: Positive for: Alert and Oriented X 3 - Systems Exam Head: Present: Atraumatic, Normocephalic Pupils: Present: PERRL Extroacular Muscles: Present: EOMI Conjunctiva: Present: Normal Mouth: Present: Moist Mucous Membranes Neck: Present: Normal Range of Motion Respiratory/Chest: Present: Clear to Auscultation, Good Air Exchange. No: Respiratory Distress, Accessory Muscle Use Cardiovascular: Present: Regular Rate and Rhythm, Normal S1, S2. No: Murmurs Abdomen: No: Tenderness, Distention, Peritoneal Signs Back: Present: Normal Inspection Upper Extremity: Present: Normal Inspection. No: Cyanosis, Edema Lower Extremity: Present: Normal Inspection. No: Edema Neurological: Present: GCS=15, CN II-XII Intact, Speech Normal, Motor Func Grossly Intact, Normal Sensory Function, Normal Cerebellar Funct, Gait Normal Skin: Present: Warm, Dry, Normal Color. No: Rashes Psychiatric: Present: Alert, Oriented x 3, Normal Insight, Normal Concentration Medical Decision Making ED Course and Treatment: 01/29/19 00:43 Impression: 58 year old male presents with numbness in fingers and toes. Plan: -- Type and Screen -- CT Head -- EKG -- CMP, A1C, Lipid, Trop -- CBC, Ddimer, Platelets -- Chest X-ray -- Reassess and disposition Prior Visits: Notes and results from previous visits were reviewed. Progress Notes: 01/29/19 00:45 Code stroke called 00:45. 01/29/19 01:15 EKG reviewed by me, shows: Sinus tachycardia @103bpm LAHB Nonspecific STT wave changes 01/29/19 01:25 CT Head without Intravenous Contrast. CLINICAL HISTORY: Code stoke TECHNIQUE: Axial computed tomography images of the head/brain without intravenous contrast. 954.02 mGy-cm CONTRAST: Without COMPARISON: CT\SD\SR - HEAD W/O CONTRAST - 01/05/2016 06:07 PM EST FINDINGS: BRAIN No acute intraparenchymal hemorrhage. No mass lesion. No CT evidence for acute territorial infarct. No midline shift or extra-axial collections. VENTRICLES: No hydrocephalus. ORBITS: The orbits are unremarkable. SINUSES AND MASTOIDS: The paranasal sinuses and mastoid air cells are clear. BONES: No fracture. IMPRESSION: No acute intracranial abnormality. No evidence for acute territorial infarction. Little interval change in comparison with the prior study from January 05, 2016. 01/29/19 01:[address] Manning, patient not candidate for tpa. CT head negative, aspirin given. 01/29/19 01:58 Chest X-ray reviewed by me, shows: No acute process. 01/29/19 01:40 Case was discussed with neurologist .Patient not a TPA candidate.ASA had been given. 01/29/19 02:[address] Marcos, who requests Dr Lancaster on consult. NIHSS Scale ([place]) Time Performed: 00:46 - How Severe is the Stoke Baseline Level of Consciousness: 0=Alert LOC to Questions: 0=Both comments correct LOC to commands: 0=Obeys both correctly Best Gaze: 0=Normal Visual: 0=No visual loss Facial: 0=Normal Motor Arm - Left: 0=No drift Motor Arm - Right: 0=No drift Motor Leg - Left: 0=No drift Motor Leg - Right: 0=No drift Limb Ataxia: 0=Absent Sensory: 0=Normal Best Language: 0=No aphasia Dysarthia: 0=Normal articulation Extinction & Inattention (Neglect): 0=Normal, no object Score: 0 Risk Level: No Stroke Risk rTPA Inclusion/Exclusion - Refusal of Treatment Patient Refused Treatment: No - Inclusion Criteria for Altepase All of the below criteria for inclusion were reviewed: Yes Patient is 18 years or Older: Yes The Clinical Diagnosis of Ischemic Stroke That is Causing a Potentially Disabling Neurological Deficit: Yes Time of Onset is Well Established to be Less Than 270 Minute Before Treatment Would Begin: Yes Risk/Benefit Discussed With Patient/Family Member Present: Yes - Exclusion Criteria for Altepase Current Intracranial Hemorrhage: No Subarachnoid hemorrhage: No Active Internal Bleeding: No Recent (within 3 months) Intracranial or Intraspinal Surgery: No Presence of intracranial conditions that may increase the risk of bleeding: Not Applicable Bleeding Diathesis Including but not limited to: Not Applicable Current Severe Uncontrolled Hypertension: No - Warning to TPA With Conditions Following Conditions Weighed Against Anticipated Benefit: No - Scribe Statement The provider has reviewed the documentation as recorded by the Merry Samano Provider Scribe Attestation: All medical record entries made by the Merry were at my direction and personally dictated by me. I have reviewed the chart and agree that the record accurately reflects my personal performance of the history, physical exam, medical decision making, and the department course for this patient. I have also personally directed, reviewed, and agree with the discharge instructions and disposition. Disposition/Present on Arrival - Present on Arrival Any Indicators Present on Arrival: No History of DVT/PE: No History of Uncontrolled Diabetes: No Urinary Catheter: No History of Decub. Ulcer: No History Surgical Site Infection Following: None - Disposition Have Diagnosis and Disposition been Completed?: Yes Diagnosis: Chest pain, Paresthesia, TIA (transient ischemic attack) Disposition: HOSPITALIZED Disposition Time: 02:02 Patient Plan: Observation Patient Problems: Current Active Problems Problem Status Onset Chest pain Acute Paresthesia Acute TIA (transient ischemic attack) Acute Condition: STABLE
[2019-01-29] MEDS ORDERED: Sodium Chloride 0.9% 1,000 ML IV SCH (01:00)
[2019-01-29 01:16] LABS: ALB/GLOB RATIO 1.2 (1.1-1.8); ALBUMIN 4.3 g/dL (3.0-4.8); ALT/SGPT 19 U/L (7-56); AST/SGOT 39 U/L (17-59); BASO # 0.03 K/mm3 (0.0-2.0); BASO % 0.3 % (0.0-3.0); BLOOD UREA NITROGEN 17 mg/dL (7-21); CALCIUM 9.7 mg/dL (8.4-10.5); EOS % 0.3 % (1.5-5.0); GFR NON-AFRICAN AMERICAN 37; HDL CHOLESTEROL 56 mg/dL (29-60); HEMOGLOBIN 10.6 g/dL (14.0-18.0); LYMPH # 2.9 (1.2-3.4); LYMPH % 25.4 % (22.0-35.0); MEAN CORPUSCULAR HEMOGLOBIN 29.8 pg (25.0-35.0); MEAN CORPUSCULAR HGB CONC 31.7 g/dl (31.0-37.0); MEAN PLATELET VOLUME 9.4 fl (7.0-11.0); MONO # 0.6 (0.1-0.6); MONO % 5.3 % (1.0-6.0); RBC 3.56 10^6/uL (3.5-6.1); RED CELL DISTRIBUTION WIDTH 16.2 % (11.5-14.5); WHITE BLOOD COUNT 11.4 10^3/uL (4.5-11.0)
[2019-01-29 01:19] LABS: MEAN CELL VOLUME 93.8 fl (80.0-105.0)
[2019-01-29 01:23] LABS: INR 1.05; PARTIAL THROMBOPLASTIN TIME 37.9 Seconds (26.9-38.3); PROTHROMBIN TIME 11.6 SECONDS (9.4-12.5)
[2019-01-29 01:26] LABS: D DIMER < 200 ng/mlDDU (0-243); LDL CHOLESTEROL 104 mg/dL (0-129)
[2019-01-29 01:29] LABS: TROPONIN I < 0.01 ng/mL
[2019-01-29 02:22] VITALS: RESP 20
--- NOTE | 2019-01-29 07:26 | CP.PCM.CON ---
History of Present Illness - History of Present Illness History of Present Illness: Awake, alert, no distress, denies chest pain Reason for consultation: Cardiac evaluation of chest pain Brief history of present illness: A 58 year old male obese who came in to the ER due to epigastric pain radiating to right side of chest. He claimed to have heart burn. He has been experiencing these symptoms for the past few days.He also complaints of feeling numbness of fingers and toes at times. History of hypertension and hyperlipidemia, siezures when he was a baby, bronchitis,umbilical hernia, GERD. Seen and examined by me and Dr. Del Rio Review of Systems - Review of Systems All systems: reviewed and no additional remarkable complaints except Review of Systems: as per HPI Past Patient History - Infectious Disease Hx of Infectious Diseases: None - Past Social History Smoking Status: Never Smoked - CARDIAC Hx Cardiac Disorders: Yes Hx Hypertension: Yes - PULMONARY Hx Respiratory Disorders: Yes Hx Bronchitis: Yes - NEUROLOGICAL Hx Neurological Disorder: Yes Hx Seizures: Yes (As a baby) - HEENT Hx HEENT Problems: No - RENAL Hx Chronic Kidney Disease: No - ENDOCRINE/METABOLIC Hx Endocrine Disorders: No - HEMATOLOGICAL/ONCOLOGICAL Hx Blood Disorders: No - INTEGUMENTARY Hx Dermatological Problems: No - MUSCULOSKELETAL/RHEUMATOLOGICAL Hx Musculoskeletal Disorders: No Hx Unsteady Gait: No - GASTROINTESTINAL Hx Gastrointestinal Disorders: Yes (umbilical hernia no sx) Hx Gastroesophageal Reflux: Yes - GENITOURINARY/GYNECOLOGICAL Hx Genitourinary Disorders: No - PSYCHIATRIC Hx Psychophysiologic Disorder: No Hx Substance Use: No - SURGICAL HISTORY Hx Cardiac Catheterization: Yes Hx Orthopedic Surgery: Yes (arthoscopic 1 yr ago r knee) Other/Comment: cyst removed from below left ear negative - ANESTHESIA Hx Anesthesia: No Hx Anesthesia Reactions: No Hx Malignant Hyperthermia: No Meds Allergies/Adverse Reactions: Allergies Allergy/AdvReac Type Severity Reaction Status Date / Time apple Allergy ITCHING Verified 01/29/19 00:45 fenofibrate nanocrystallized Allergy ANAPHYLAXIS Verified 01/29/19 00:45 [From Tricor] fenofibrate,micronized Allergy ANAPHYLAXIS Verified 01/29/19 00:45 [From Tricor] grape Allergy ITCHING Verified 01/29/19 00:45 ORANGE Allergy ITCHING Verified 01/29/19 00:45 peach Allergy ITCHING Verified 01/29/19 08:05 pear Allergy ITCHING Verified 01/29/19 08:05 Penicillins Allergy SWELLING Verified 01/29/19 00:45 tomato Allergy ITCHING Verified 01/29/19 00:45 jello Allergy ANAPHYLAXIS Uncoded 01/29/19 00:45 onions Allergy ITCHING Uncoded 01/29/19 00:45 pepper Allergy ITCHING Uncoded 01/29/19 00:45 CONTRAST DYE AdvReac Severe ITCHING Uncoded 01/29/19 00:45 PEANUT AdvReac Severe SHORTNESS Uncoded 01/29/19 00:45 OF BREATH - Medications Medications: Current Medications Sodium Chloride (Sodium Chloride 0.9%) 1,000 mls @ 100 mls/hr IV .Q10H NAUN Last Admin: 01/29/19 01:14 Dose: 100 mls/hr Physical Exam - Constitutional Appears: Non-toxic, No Acute Distress - Head Exam Head Exam: NORMAL INSPECTION, NORMOCEPHALIC - Eye Exam Eye Exam: Normal appearance Pupil Exam: NORMAL ACCOMODATION - ENT Exam ENT Exam: Mucous Membranes Moist, Normal Exam - Respiratory Exam Respiratory Exam: Decreased Breath Sounds, Clear to Auscultation Bilateral, NORMAL BREATHING PATTERN - Cardiovascular Exam Cardiovascular Exam: REGULAR RHYTHM, +S1, +S2 - GI/Abdominal Exam GI & Abdominal Exam: Normal Bowel Sounds, Soft Additional comments: denies epigastric pain now - Extremities Exam Extremities exam: Positive for: full ROM, normal capillary refill - Neurological Exam Neurological exam: Alert, Oriented x3 - Psychiatric Exam Psychiatric exam: Normal Affect, Normal Mood - Skin Skin Exam: Dry, Normal Color, Warm Results - Vital Signs Recent Vital Signs: Last Vital Signs Temp 98.9 F 01/29/19 00:42 Pulse 83 01/29/19 02:43 Resp 20 01/29/19 02:43 BP 124/81 01/29/19 02:43 Pulse Ox 100 01/29/19 02:43 - Labs Result Diagrams: 01/29/19 00:50 01/29/19 00:50 Labs: Laboratory Results - last 24 hr 01/29/19 01/29/19 01/29/19 00:50 00:50 00:50 WBC 11.4 H RBC 3.56 Hgb 10.6 L Hct 33.4 L MCV 93.8 D MCH 29.8 MCHC 31.7 RDW 16.2 H Plt Count 278 MPV 9.4 Neut % (Auto) 68.7 H Lymph % (Auto) 25.4 Will % (Auto) 5.3 Eos % (Auto) 0.3 L Baso % (Auto) 0.3 Lymph # (Auto) 2.9 Will # (Auto) 0.6 Eos # (Auto) 0.0 Baso # (Auto) 0.03 Absolute Neuts (auto) 7.84 H PT 11.6 INR 1.05 APTT 37.9 D-Dimer, Quantitative < 200 Sodium 139 Potassium 4.1 Chloride 103 Carbon Dioxide 28 Anion Gap 12 BUN 17 Creatinine 1.9 H Est GFR ( Amer) 44 Est GFR (Non-Af Amer) 37 POC Glucose (mg/dL) Random Glucose 105 Calcium 9.7 Total Bilirubin 0.3 AST 39 ALT 19 Alkaline Phosphatase 93 Troponin I < 0.01 Total Protein 7.9 Albumin 4.3 Globulin 3.6 Albumin/Globulin Ratio 1.2 Triglycerides 351 H Cholesterol 221 H LDL Cholesterol Direct 104 HDL Cholesterol 56 Blood Type Blood Type Confirm Antibody Screen BBK History Checked 01/29/19 01/29/19 01/29/19 00:50 00:51 02:09 WBC RBC Hgb Hct MCV MCH MCHC RDW Plt Count MPV Neut % (Auto) Lymph % (Auto) Will % (Auto) Eos % (Auto) Baso % (Auto) Lymph # (Auto) Will # (Auto) Eos # (Auto) Baso # (Auto) Absolute Neuts (auto) PT INR APTT D-Dimer, Quantitative Sodium Potassium Chloride Carbon Dioxide Anion Gap BUN Creatinine Est GFR ( Amer) Est GFR (Non-Af Amer) POC Glucose (mg/dL) 115 H Random Glucose Calcium Total Bilirubin AST ALT Alkaline Phosphatase Troponin I Total Protein Albumin Globulin Albumin/Globulin Ratio Triglycerides Cholesterol LDL Cholesterol Direct HDL Cholesterol Blood Type O POSITIVE Blood Type Confirm O POSITIVE Antibody Screen Negative BBK History Checked No verified bt Assessment & Plan - Assessment and Plan (Free Text) Assessment: A 58 year old male obese who came in to the ER due to epigastric pain radiating to right side of chest. He claimed to have heart burn. He has been experiencing these symptoms for the past few days.He also complaints of feeling numbness of fingers and toes at times. History of hypertension and hyperlipidemia, siezures when he was a baby, bronchitis,umbilical hernia, GERD. Had echo on 07/27/15 and showed LVEF 55%, trace AR,trace mitral and tricuspid regurgitation, RVSP 18 mmHg, transmitral doppler flow Grade III, reversible restrictive diastolic dysfunction. Normal Stress test done on 07/27/15 with LVEF 53%. EGD done on 04/2016 showed gastroparesis and gastritis. Chest pain radiating from GI symptom/epigastric pain. Rule out myocardial ischemia. Troponin negative (0.01). Will repeat Echo. Stress test as outpatient. Consider GI work up. Plan: Denies chest pain Heart rate controlled Blood pressure controlled Cardiac status stable Will resume Valsartan and start Aspirin 81 mg daily Continue current treatment Continue current management Consider GI workup Lifestyle modification Weight reduction TSH, lipid profile, HgbA1C Will follow up Further recommendations during hospital course Plan and treatment discussed with Dr. Del Rio Thank you Dr. Marcos for the opportunity of taking care of Kehinde Rodriguez Jr. - Date & Time Date: 01/29/19 Time: 06:15
[2019-01-29 07:56] VITALS: BP 117/79; PULSE 83; TEMP 97.3; O2SAT 99
--- NOTE | 2019-01-29 08:25 | CT ---
Date of service: 01/29/2019 PROCEDURE: CT HEAD WITHOUT CONTRAST. HISTORY: Code Stroke COMPARISON: 01/05/2016 TECHNIQUE: Axial computed tomography images were obtained through the head/brain without intravenous contrast. Radiation dose: Total exam DLP = 954.02 mGy-cm. This CT exam was performed using one or more of the following dose reduction techniques: Automated exposure control, adjustment of the mA and/or kV according to patient size, and/or use of iterative reconstruction technique. FINDINGS: HEMORRHAGE: No intracranial hemorrhage. BRAIN: No mass effect or edema. No atrophy or chronic microvascular ischemic changes. VENTRICLES: Unremarkable. No hydrocephalus. CALVARIUM: Unremarkable. PARANASAL SINUSES: Unremarkable as visualized. No significant inflammatory changes. MASTOID AIR CELLS: Unremarkable as visualized. No inflammatory changes. OTHER FINDINGS: The report concurs with the preliminary [facility] report IMPRESSION: No acute intracranial findings
--- NOTE | 2019-01-29 09:08 | RAD ---
Date of service: 01/29/2019 PROCEDURE: CHEST RADIOGRAPH, 1 VIEW HISTORY: Code Stroke COMPARISON: 10/30/2018 FINDINGS: LUNGS: Clear. PLEURA: No pneumothorax or pleural fluid seen. CARDIOVASCULAR: No aortic atherosclerotic calcification present. Normal. OSSEOUS STRUCTURES: No significant abnormalities. VISUALIZED UPPER ABDOMEN: Normal. OTHER FINDINGS: None. IMPRESSION: No active disease.
--- NOTE | 2019-01-29 11:06 | CP.PCM.CON ---
History of Present Illness - History of Present Illness History of Present Illness: Flip Patton PGY2 Neurology Consult Note for Dr. Manning 58 year old male with past medical history includes hypertension and hyperlipidemia, presented to the emergency department for intermittent right sided chest pain for the past couple of days. Patient states symptoms began after having some pizza, where it felt like heart burn or food stuck in chest. He then has some numbness and tingling in his hands bilaterally which since has resolved. Patient denies headaches, change in vision, syncope, slurred speech, or any other complaints at this time. Review of Systems - Cardiovascular Cardiovascular: absent: Chest Pain - Respiratory Respiratory: absent: Dyspnea - Gastrointestinal Gastrointestinal: absent: Abdominal Pain, Nausea, Vomiting - Neurological Neurological: absent: Abnormal Hearing, Abnormal Speech, Behavioral Changes, Disequilibrium, Dizziness, Numbness, Focal Weakness, Frequent Falls, Lack of Coordination, Radicular Pain, Restless Legs, Sensory Deficit, Syncope, Tingling, Tremor, Weakness Past Patient History - Infectious Disease Hx of Infectious Diseases: None - Past Social History Smoking Status: Never Smoked - CARDIAC Hx Cardiac Disorders: Yes Hx Hypertension: Yes - PULMONARY Hx Respiratory Disorders: Yes Hx Bronchitis: Yes - NEUROLOGICAL Hx Neurological Disorder: Yes Hx Seizures: Yes (As a baby) - HEENT Hx HEENT Problems: No - RENAL Hx Chronic Kidney Disease: No - ENDOCRINE/METABOLIC Hx Endocrine Disorders: No - HEMATOLOGICAL/ONCOLOGICAL Hx Blood Disorders: No - INTEGUMENTARY Hx Dermatological Problems: No - MUSCULOSKELETAL/RHEUMATOLOGICAL Hx Musculoskeletal Disorders: No Hx Unsteady Gait: No - GASTROINTESTINAL Hx Gastrointestinal Disorders: Yes (umbilical hernia no sx) Hx Gastroesophageal Reflux: Yes - GENITOURINARY/GYNECOLOGICAL Hx Genitourinary Disorders: No - PSYCHIATRIC Hx Psychophysiologic Disorder: No Hx Substance Use: No - SURGICAL HISTORY Hx Cardiac Catheterization: Yes Hx Orthopedic Surgery: Yes (arthoscopic 1 yr ago r knee) Other/Comment: cyst removed from below left ear negative - ANESTHESIA Hx Anesthesia: No Hx Anesthesia Reactions: No Hx Malignant Hyperthermia: No Meds Allergies/Adverse Reactions: Allergies Allergy/AdvReac Type Severity Reaction Status Date / Time apple Allergy ITCHING Verified 01/29/19 00:45 fenofibrate nanocrystallized Allergy ANAPHYLAXIS Verified 01/29/19 00:45 [From Tricor] fenofibrate,micronized Allergy ANAPHYLAXIS Verified 01/29/19 00:45 [From Tricor] grape Allergy ITCHING Verified 01/29/19 00:45 ORANGE Allergy ITCHING Verified 01/29/19 00:45 peach Allergy ITCHING Verified 01/29/19 08:05 pear Allergy ITCHING Verified 01/29/19 08:05 Penicillins Allergy SWELLING Verified 01/29/19 00:45 tomato Allergy ITCHING Verified 01/29/19 00:45 jello Allergy ANAPHYLAXIS Uncoded 01/29/19 00:45 onions Allergy ITCHING Uncoded 01/29/19 00:45 pepper Allergy ITCHING Uncoded 01/29/19 00:45 CONTRAST DYE AdvReac Severe ITCHING Uncoded 01/29/19 00:45 PEANUT AdvReac Severe SHORTNESS Uncoded 01/29/19 00:45 OF BREATH - Medications Medications: Current Medications Aspirin (Ecotrin) 81 mg PO DAILY [facility] Last Admin: 01/29/19 09:21 Dose: 81 mg Sodium Chloride (Sodium Chloride 0.9%) 1,000 mls @ 100 mls/hr IV .Q10H [facility] Last Admin: 01/29/19 01:14 Dose: 100 mls/hr Valsartan (Diovan) 320 mg PO DAILY [facility] Last Admin: 01/29/19 09:21 Dose: 320 mg Physical Exam - Constitutional Appears: Well, Non-toxic, No Acute Distress - Head Exam Head Exam: ATRAUMATIC, NORMAL INSPECTION, NORMOCEPHALIC - Eye Exam Eye Exam: EOMI, Normal appearance, PERRL - ENT Exam ENT Exam: Mucous Membranes Moist - Respiratory Exam Respiratory Exam: Clear to Auscultation Bilateral, NORMAL BREATHING PATTERN - Cardiovascular Exam Cardiovascular Exam: +S1, +S2 - GI/Abdominal Exam GI & Abdominal Exam: Normal Bowel Sounds - Extremities Exam Extremities exam: Positive for: full ROM, pedal pulses present - Neurological Exam Neurological exam: Alert, CN II-XII Intact, Normal Gait, Oriented x3, Reflexes Normal Results - Vital Signs Recent Vital Signs: Last Vital Signs Temp 97.3 F L 01/29/19 06:00 Pulse 83 01/29/19 06:00 Resp 20 01/29/19 06:00 BP 117/79 01/29/19 06:00 Pulse Ox 99 01/29/19 06:00 - Labs Result Diagrams: 01/29/19 00:50 01/29/19 00:50 Labs: Laboratory Results - last 24 hr 01/29/19 01/29/19 01/29/19 00:50 00:50 00:50 WBC 11.4 H RBC 3.56 Hgb 10.6 L Hct 33.4 L MCV 93.8 D MCH 29.8 MCHC 31.7 RDW 16.2 H Plt Count 278 MPV 9.4 Neut % (Auto) 68.7 H Lymph % (Auto) 25.4 Canadian % (Auto) 5.3 Eos % (Auto) 0.3 L Baso % (Auto) 0.3 Lymph # (Auto) 2.9 [place] # (Auto) 0.6 Eos # (Auto) 0.0 Baso # (Auto) 0.03 Absolute Neuts (auto) 7.84 H PT 11.6 INR 1.05 APTT 37.9 D-Dimer, Quantitative < 200 Sodium 139 Potassium 4.1 Chloride 103 Carbon Dioxide 28 Anion Gap 12 BUN 17 Creatinine 1.9 H Est GFR ( Amer) 44 Est GFR (Non-Af Amer) 37 POC Glucose (mg/dL) Random Glucose 105 Calcium 9.7 Total Bilirubin 0.3 AST 39 ALT 19 Alkaline Phosphatase 93 Troponin I < 0.01 Total Protein 7.9 Albumin 4.3 Globulin 3.6 Albumin/Globulin Ratio 1.2 Triglycerides 351 H Cholesterol 221 H LDL Cholesterol Direct 104 HDL Cholesterol 56 Blood Type Blood Type Confirm Antibody Screen BBK History Checked 01/29/19 01/29/19 01/29/19 00:50 00:51 02:09 WBC RBC Hgb Hct MCV MCH MCHC RDW Plt Count MPV Neut % (Auto) Lymph % (Auto) Canadian % (Auto) Eos % (Auto) Baso % (Auto) Lymph # (Auto) Canadian # (Auto) Eos # (Auto) Baso # (Auto) Absolute Neuts (auto) PT INR APTT D-Dimer, Quantitative Sodium Potassium Chloride Carbon Dioxide Anion Gap BUN Creatinine Est GFR ( Amer) Est GFR (Non-Af Amer) POC Glucose (mg/dL) 115 H Random Glucose Calcium Total Bilirubin AST ALT Alkaline Phosphatase Troponin I Total Protein Albumin Globulin Albumin/Globulin Ratio Triglycerides Cholesterol LDL Cholesterol Direct HDL Cholesterol Blood Type O POSITIVE Blood Type Confirm O POSITIVE Antibody Screen Negative BBK History Checked No verified bt Assessment & Plan - Assessment and Plan (Free Text) Plan: TIA -CT head negative -no focal deficits currently -continue aspirin 81mg
--- NOTE | 2019-01-29 12:17 | CARD ---
APPROVED REPORT Date of service: 01/29/2019 EKG Measurement Heart [id number] 180P [id number] <Conclusion> Sinus tachycardia Left anterior fascicular block Abnormal ECG
--- NOTE | 2019-01-29 21:57 | CARD ---
APPROVED REPORT Date of service: 01/29/2019 EXAM: Two-dimensional and M-mode echocardiogram with Doppler and color Doppler. INDICATION LVFX 2D DIMENSIONS Left Atrium (2D)3.9 (1.6-4.0cm)IVSd1.1 (0.7-1.1cm) LVDd4.8 (3.9-5.9cm)PWd1.2 (0.7-1.1cm) LVDs3.3 (2.5-4.0cm)FS (%) 31.2 % LVEF (%)59.0 (>50%) M-Mode DIMENSIONS Aortic Root4.00 (2.2-3.7cm)Aortic Cusp Exc.2.10 (1.5-2.0cm) Aortic Valve AoV Peak Jdwbqctn805.0cm/Jacquie Peak GR.8mmHg Mitral Valve MV E Whhpgras315.0cm/sMV A Rqqzuocd82.9cm/sE/A ratio1.2 TDI Lateral E' Peak V8.48cm/sMedial E' Peak V9.26cm/sE/Lateral E'12.0 E/Medial E'11.0 Pulmonary Valve PV Peak Dudeytmd67.5cm/sPV Peak Grad.2mmHg Tricuspid Valve TR Peak Nbdjzbhl302sa/sRAP [id number] Peak Gr.29mmHg [id number] LEFT VENTRICLE The left ventricle is normal size. The left ventricular function is normal. The left ventricular ejection fraction is within the normal range.Ej.Fr: 55-60%. RIGHT VENTRICLE The right ventricle is normal size. The right ventricular systolic function is normal. ATRIA The left atrium size is normal. The right atrium size is normal. AORTIC VALVE The aortic valve is normal in structure. MITRAL VALVE Mitral Valve Opening Normal. Some Views Very [place] MVP Seen. Mitral regurgitation is trace. TRICUSPID VALVE The tricuspid valve is normal in structure. There is trace tricuspid regurgitation. RVSP 39mm Hg. Minimal Pulmonary Hypertension. GREAT VESSELS Aortic Root shows Mild Dilatation. PERICARDIAL EFFUSION There is no pericardial effusion. <Conclusion> The left ventricle is normal size. LV Systolic Function Normal. Ej.Fr: 55-60%. The right ventricle is normal size. The right ventricular systolic function is normal. The left atrium size is normal. The right atrium size is normal. The aortic valve is normal in structure. Mitral Valve Opening Normal. In Some Views Very [place] MVP Seen. Mitral regurgitation is trace. The tricuspid valve is normal in structure. There is trace tricuspid regurgitation. RVSP 39mm Hg. Minimal Pulmonary Hypertension. Aortic Root shows Mild Dilatation. There is no pericardial effusion.
--- NOTE | 2019-01-30 01:16 | HP ---
DATE OF EXAM: 01/30/2019 HISTORY OF PRESENT ILLNESS: Patient is 58 years old. States night he had pizza after a lot of sauce and sausage. After one hour, he started to have epigastric discomfort radiating to right upper chest. Denies any nausea or vomiting. No fever or chills. He had palpitation. He told his who advised him to go to emergency room for further evaluation. PAST MEDICAL HISTORY: Significant for; 1. Hypertension. 2. Hyperlipidemia. 3. Peptic ulcer disease. 4. History of left parotid gland surgery. 5. Chronic cervical degenerative disc disease. 6. Lumbosacral radiculopathy. ALLERGY: HE IS ALLERGIC TO APPLES, FENOFIBRATE, MICRONIAZIDE, GRAPES, TOMATOES, PENICILLIN, JELLO, ONION, PEPPER, CONTRAST DYE AND PEANUT. MEDICATION AT HOME: He is on Percocet as needed. He is on valsartan 320 mg daily, Crestor 20 mg daily, omeprazole 20 mg daily and Zetia 10 mg daily. SOCIAL HISTORY: He denies smoking; however, he drinks on a regular basis. PHYSICAL EXAMINATION GENERAL: He is awake and alert, able to communicate. VITAL SIGNS: Afebrile. Pulse 83, respiration 20, blood pressure 117/79. LUNGS: Bilateral fair airflow. No rhonchi or crackle. HEART: S1, S2 audible. ABDOMEN: Soft, nontender. No rebound. No guarding. NEUROLOGIC: Patient is awake and alert. Able to communicate. LABORATORY DATA: WBC is 11.4, hemoglobin 10.6, hematocrit 33.4, platelet 278. PT 11.6, INR 1.05. Chemistry; sodium 139, potassium 4.1, chloride 103, CO2 of 29, BUN 17, creatinine 1.9, blood sugar of 115, triglycerides 351, total cholesterol 221. CT scan of the head is negative. ASSESSMENT 1. Chest pain, seems to be noncardiac. 2. Probably peptic ulcer disease gastritis. 3. Hypertension. 4. Hyperlipidemia. 5. Degenerative disc disease. PLAN: The patient had a troponin that was negative, was evaluated by Dr. Del Rio. His chest pain seems to be noncardiac. He underwent echocardiogram that shows good LV function with ejection fraction of 50% to 60%, trace mitral regurgitation. Patient is being discharged home. He will continue omeprazole. He will take Zantac 150 mg in the evening. We will discontinue Crestor and we will start him on simvastatin and he will continue his valsartan and he will follow up in the office in the a.m. Marcela Marcos MD
== END 2019-01-29 15:17 | disposition left against medical advice (07) ==
LOC: ED 00:30 → ERH 02:03 → 2RNO 04:18
PROVIDERS: ADMIT Internal Medicine; ATTEND Internal Medicine
DX: R07.9 Chest pain, unspecified (principal); R10.13 Epigastric pain; E66.9 Obesity, unspecified; E78.5 Hyperlipidemia, unspecified; I10 Essential (primary) hypertension; K21.9 Gastro-esophageal reflux disease without esophagitis; K27.9 Peptic ulcer, site unspecified, unspecified as acute or chronic, without hemorrhage or perforation; K29.70 Gastritis, unspecified, without bleeding; K31.84 Gastroparesis; M50.30 Other cervical disc degeneration, unspecified cervical region; M54.17 Radiculopathy, lumbosacral region; Z88.3 Allergy status to other anti-infective agents; Z91.041 Radiographic dye allergy status; Z91.010 Allergy to peanuts; Z91.018 Allergy to other foods
CPT/HCPCS: 70450; 71045; 80053; 80061; 82948; 83036; 84484; 85025; 85378; 85610; 85730; 86850; 86900; 93005; 93306; 99285; G0378; J7030

== ENCOUNTER 2019-03-01 09:07 | Outpatient (CLI) | payer BC | END 2019-03-01 09:08 | disposition home or self-care (01) | LOC: CARDIO 09:07 | DX: R07.9 Chest pain, unspecified (principal) ==

== ENCOUNTER 2019-03-22 19:45 | Observation (INO) | payer BC ==
[2019-03-22 19:59] VITALS: BMI 38.0
--- NOTE | 2019-03-22 20:20 | ED PDOC ---
Arrival/HPI - General Chief Complaint: Chest Pain Time Seen by Provider: 03/22/19 19:49 Historian: Patient - History of Present Illness Narrative History of Present Illness (Text): 03/22/19 20:16 A 58 year old male, whose past medical history includes hypertension, hypercholesterolemia, peptic ulcer disease, lumbosacral radiculopathy, presents to the emergency department with a complaint of intermittent left sided chest discomfort which patient states he developed earlier today. Patient states that he had undergone an EGD earlier in the day at [facility]. He states that he spoke to his doctor who advised him to go to the emergency department if he had any symptoms. Patient had undergone previous echocardiogram and myocardial stress tests, results of which are noted. Patient denies midline chest discomfort, fevers, chills, headache, dizziness, shortness of breath, dyspnea on exertion, cough, abdominal pain, nausea, vomiting, diarrhea, back pain, neck pain, urinary/bowel changes, or any other complaint. Time/Duration: Other (Today) Symptom Onset: Sudden Symptom Course: Intermittent Activities at Onset: Rest, Light Context: Home Past Medical History - Provider Review Nursing Documentation Reviewed: Yes Primary Care Provider: Marcela Marcos - Infectious Disease Hx of Infectious Diseases: None - Cardiac Hx Hypertension: Yes - Pulmonary Hx Respiratory Disorders: Yes Hx Bronchitis: Yes - Neurological Hx Neurological Disorder: Yes Hx Seizures: Yes (As a baby) - HEENT Hx HEENT Disorder: No - Renal Hx Renal Disorder: No - Endocrine/Metabolic Hx Endocrine Disorders: No - Hematological/Oncological Hx Blood Disorders: No - Integumentary Hx Dermatological Disorder: No - Musculoskeletal/Rheumatological Hx Musculoskeletal Disorders: No Hx Unsteady Gait: No - Gastrointestinal Hx Gastrointestinal Disorders: Yes (umbilical hernia no sx) Hx Gastroesophageal Reflux: Yes - Genitourinary/Gynecological Hx Genitourinary Disorders: No - Psychiatric Hx Psychophysiologic Disorder: No Hx Substance Use: No - Surgical History Hx Cardiac Catheterization: Yes Hx Orthopedic Surgery: Yes (arthoscopic 1 yr ago r knee) Other/Comment: cyst removed from below left ear negative - Anesthesia Hx Anesthesia: Yes - Suicidal Assessment Feels Threatened In Home Enviroment: No Family/Social History - Physician Review Nursing Documentation Reviewed: Yes Family/Social History: No Known Family HX Smoking Status: Never Smoked Hx Alcohol Use: Yes (social) Frequency of alcohol use: Socially Hx Substance Use: No Allergies/Home Meds Allergies/Adverse Reactions: Allergies apple Allergy (Verified 03/22/19 19:54) ITCHING fenofibrate nanocrystallized [From Tricor] Allergy (Verified 03/22/19 19:54) ANAPHYLAXIS fenofibrate,micronized [From Tricor] Allergy (Verified 03/22/19 19:54) ANAPHYLAXIS grape Allergy (Verified 03/22/19 19:54) ITCHING ORANGE Allergy (Verified 03/22/19 19:54) ITCHING peach Allergy (Verified 03/22/19 19:54) ITCHING pear Allergy (Verified 03/22/19 19:54) ITCHING Penicillins Allergy (Verified 03/22/19 19:54) SWELLING tomato Allergy (Verified 03/22/19 19:54) ITCHING jello Allergy (Uncoded 03/22/19 19:54) ANAPHYLAXIS onions Allergy (Uncoded 03/22/19 19:54) ITCHING pepper Allergy (Uncoded 03/22/19 19:54) ITCHING BLACK PEPPER CONTRAST DYE Adverse Reaction (Severe, Uncoded 03/22/19 19:54) ITCHING TREMORS PEANUT Adverse Reaction (Severe, Uncoded 03/22/19 19:54) SHORTNESS OF BREATH Home Medications: Home Meds Medication Instructions Recorded Confirmed Ezetimibe [Zetia] 10 mg PO DAILY 06/04/15 03/01/19 Rosuvastatin Calcium [Crestor] 20 mg PO DAILY 04/02/16 03/01/19 Valsartan [Diovan] 320 mg PO DAILY 04/02/16 01/29/19 Review of Systems - Physician Review All systems were reviewed & negative as marked: Yes - Review of Systems Constitutional: absent: Fevers Respiratory: absent: SOB, Cough Cardiovascular: Chest Pain. absent: LESLIE Gastrointestinal: absent: Abdominal Pain, Stool Changes, Diarrhea, Nausea, Vomiting Genitourinary Male: absent: Urinary Output Changes Musculoskeletal: absent: Back Pain, Neck Pain Neurological: absent: Headache, Dizziness Physical Exam Vital Signs Reviewed: Yes Vital Signs Temp Pulse Resp BP Pulse Ox 03/22/19 20:15 98.4 F 86 18 130/75 100 Temperature: Afebrile Blood Pressure: Normal Pulse: Regular Respiratory Rate: Normal Appearance: Positive for: Well-Appearing, Non-Toxic, Comfortable Pain Distress: None Mental Status: Positive for: Alert and Oriented X 3 - Systems Exam Head: Present: Atraumatic, Normocephalic Pupils: Present: PERRL Extroacular Muscles: Present: EOMI Conjunctiva: Present: Normal Mouth: Present: Moist Mucous Membranes Neck: Present: Normal Range of Motion Respiratory/Chest: Present: Clear to Auscultation, Good Air Exchange. No: Respiratory Distress, Accessory Muscle Use Cardiovascular: Present: Regular Rate and Rhythm, Normal S1, S2. No: Murmurs Abdomen: No: Tenderness, Distention, Peritoneal Signs Back: Present: Normal Inspection Upper Extremity: Present: Normal Inspection. No: Cyanosis, Edema Lower Extremity: Present: Normal Inspection. No: Edema Neurological: Present: GCS=15, CN II-XII Intact, Speech Normal Skin: Present: Warm, Dry, Normal Color. No: Rashes Psychiatric: Present: Alert, Oriented x 3, Normal Insight, Normal Concentration Medical Decision Making ED Course and Treatment: 03/22/19 20:19 Impression: A 58 year old male presents to the emergency department for further evaluation of intermittent left sided chest pain. Plan: -- EKG -- Chest X-ray -- Labs -- Reassess and disposition Progress Notes: 03/22/19 20:08: EKG read and interpreted by me shows NSR at 87 BPM. LAVH, non- specific ST- T changes, and prolonged QT. 03/22/19 21:45: Chest X-ray read and interpreted by me shows no acute process. 03/22/19 22:24: Case discussed in detail with Dr. Marcos who accepts patient to her service. Requests Dr. Del Rio on consult. - Lab Interpretations I have reviewed the lab results: Yes - RAD Interpretation Radiology Orders: 03/22/19 19:57 CHEST PORTABLE [RAD] Stat - EKG Interpretation Interpreted by ED Physician: Yes Type: 12 lead EKG - Scribe Statement The provider has reviewed the documentation as recorded by the Scribe Kita Sloan Provider Scribe Attestation: All medical record entries made by the Scribe were at my direction and personally dictated by me. I have reviewed the chart and agree that the record accurately reflects my personal performance of the history, physical exam, medical decision making, and the department course for this patient. I have also personally directed, reviewed, and agree with the discharge instructions and disposition. Disposition/Present on Arrival - Present on Arrival Any Indicators Present on Arrival: No History of DVT/PE: No History of Uncontrolled Diabetes: No Urinary Catheter: No History of Decub. Ulcer: No History Surgical Site Infection Following: None - Disposition Have Diagnosis and Disposition been Completed?: Yes Diagnosis: Chest pain Disposition: HOSPITALIZED Disposition Time: 21:55 Patient Problems: Current Active Problems Problem Status Onset Chest pain Acute Condition: STABLE
[2019-03-22 20:51] LABS: HEMOGLOBIN 11.5 g/dL (14.0-18.0); MEAN CELL VOLUME 88.2 fl (80.0-105.0); MEAN CORPUSCULAR HEMOGLOBIN 28.9 pg (25.0-35.0); MEAN CORPUSCULAR HGB CONC 32.8 g/dl (31.0-37.0); MEAN PLATELET VOLUME 9.6 fl (7.0-11.0); RBC 3.98 10^6/uL (3.5-6.1); RED CELL DISTRIBUTION WIDTH 15.9 % (11.5-14.5); WHITE BLOOD COUNT 7.4 10^3/uL (4.5-11.0)
[2019-03-22 20:55] LABS: INR 1.14; PARTIAL THROMBOPLASTIN TIME 36.9 Seconds (26.9-38.3); PROTHROMBIN TIME 12.6 SECONDS (9.4-12.5)
[2019-03-22 20:58] LABS: ALB/GLOB RATIO 1.4 (1.1-1.8); ALBUMIN 4.3 g/dL (3.0-4.8); ALT/SGPT 21 U/L (7-56); AST/SGOT 42 U/L (17-59); BLOOD UREA NITROGEN 12 mg/dL (7-21); CALCIUM 9.2 mg/dL (8.4-10.5); GFR NON-AFRICAN AMERICAN 52
[2019-03-22 21:09] LABS: TROPONIN I < 0.01 ng/mL
[2019-03-23] MEDS ORDERED: Pantoprazole 40 mg EC Tab PO SCH (06:30)
[2019-03-23 06:52] VITALS: O2SAT 100
[2019-03-23 07:50] LABS: TROPONIN I < 0.01 ng/mL
[2019-03-23] MEDS ORDERED: Metoprolol Succinate 25 mg XL Tab PO SCH (08:00)
--- NOTE | 2019-03-23 09:35 | CP.PCM.CON ---
Past Patient History - Infectious Disease Hx of Infectious Diseases: None - Past Social History Smoking Status: denies - CARDIAC Hx Cardiac Disorders: Yes Hx Hypercholesterolemia: Yes Hx Hypertension: Yes - PULMONARY Hx Respiratory Disorders: Yes Hx Bronchitis: Yes - NEUROLOGICAL Hx Neurological Disorder: Yes Hx Seizures: Yes (As a baby) - HEENT Hx HEENT Problems: No - RENAL Hx Chronic Kidney Disease: No - ENDOCRINE/METABOLIC Hx Endocrine Disorders: No - HEMATOLOGICAL/ONCOLOGICAL Hx Blood Disorders: No - INTEGUMENTARY Hx Dermatological Problems: No - MUSCULOSKELETAL/RHEUMATOLOGICAL Hx Musculoskeletal Disorders: No Hx Falls: No Hx Unsteady Gait: No - GASTROINTESTINAL Hx Gastrointestinal Disorders: Yes (umbilical hernia no sx) Hx Gastroesophageal Reflux: Yes - GENITOURINARY/GYNECOLOGICAL Hx Genitourinary Disorders: No - PSYCHIATRIC Hx Psychophysiologic Disorder: No Hx Substance Use: No - SURGICAL HISTORY Hx Cardiac Catheterization: Yes Hx Orthopedic Surgery: Yes (arthoscopic 1 yr ago r knee) Other/Comment: cyst removed from below left ear lobe - ANESTHESIA Hx Anesthesia: Yes Meds Allergies/Adverse Reactions: Allergies Allergy/AdvReac Type Severity Reaction Status Date / Time apple Allergy ITCHING Verified 03/22/19 19:54 fenofibrate nanocrystallized Allergy ANAPHYLAXIS Verified 03/22/19 19:54 [From Tricor] fenofibrate,micronized Allergy ANAPHYLAXIS Verified 03/22/19 19:54 [From Tricor] grape Allergy ITCHING Verified 03/22/19 19:54 ORANGE Allergy ITCHING Verified 03/22/19 19:54 peach Allergy ITCHING Verified 03/22/19 19:54 pear Allergy ITCHING Verified 03/22/19 19:54 Penicillins Allergy SWELLING Verified 03/22/19 19:54 tomato Allergy ITCHING Verified 03/22/19 19:54 jello Allergy ANAPHYLAXIS Uncoded 03/22/19 19:54 onions Allergy ITCHING Uncoded 03/22/19 19:54 pepper Allergy ITCHING Uncoded 03/22/19 19:54 CONTRAST DYE AdvReac Severe ITCHING Uncoded 03/22/19 19:54 PEANUT AdvReac Severe SHORTNESS Uncoded 03/22/19 19:54 OF BREATH - Medications Medications: Current Medications Atorvastatin Calcium (Lipitor) 10 mg PO DIN NAUN Losartan Potassium (Cozaar) 100 mg PO DAILY NAUN Metoprolol Succinate (Toprol Xl) [address] [facility] Last Admin: 03/23/19 08:04 Dose: 25 mg Pantoprazole Sodium (Protonix Ec Tab) 40 mg PO 0630 NAUN Last Admin: 03/23/19 06:53 Dose: 40 mg Physical Exam - Constitutional Appears: Non-toxic, No Acute Distress - Head Exam Head Exam: NORMAL INSPECTION, NORMOCEPHALIC - Eye Exam Eye Exam: Normal appearance Pupil Exam: NORMAL ACCOMODATION - ENT Exam ENT Exam: Mucous Membranes Moist, Normal Exam - Respiratory Exam Respiratory Exam: Decreased Breath Sounds, Clear to Auscultation Bilateral, NORMAL BREATHING PATTERN - Cardiovascular Exam Cardiovascular Exam: REGULAR RHYTHM, +S1, +S2 Additional comments: denies chest pain Telemetry NSR - GI/Abdominal Exam GI & Abdominal Exam: Normal Bowel Sounds, Soft - Neurological Exam Neurological exam: Alert, Oriented x3 - Psychiatric Exam Psychiatric exam: Normal Affect, Normal Mood - Skin Skin Exam: Dry, Normal Color, Warm Results - Vital Signs Recent Vital Signs: Last Vital Signs Temp 97.4 F L 03/23/19 06:00 Pulse 77 03/23/19 06:00 Resp 19 03/23/19 06:00 BP 120/79 03/23/19 06:00 Pulse Ox 100 03/23/19 06:00 - Labs Result Diagrams: 03/22/19 20:43 03/22/19 20:43 Labs: Laboratory Results - last 24 hr 03/22/19 03/22/19 03/22/19 20:43 20:43 20:43 WBC 7.4 D RBC 3.98 Hgb 11.5 L Hct 35.1 L MCV 88.2 D MCH 28.9 MCHC 32.8 RDW 15.9 H Plt Count 213 MPV 9.6 PT 12.6 H INR 1.14 APTT 36.9 Sodium 139 Potassium 3.9 Chloride 107 Carbon Dioxide 23 Anion Gap 13 BUN 12 Creatinine 1.4 Est GFR ( Amer) > 60 Est GFR (Non-Af Amer) 52 Random Glucose 122 H Calcium 9.2 Total Bilirubin 0.7 AST 42 ALT 21 Alkaline Phosphatase 94 Lactate Dehydrogenase 591 Total Creatine Kinase 135 Troponin I < 0.01 Total Protein 7.3 Albumin 4.3 Globulin 3.1 Albumin/Globulin Ratio 1.4 03/23/19 07:00 WBC RBC Hgb Hct MCV MCH MCHC RDW Plt Count MPV PT INR APTT Sodium Potassium Chloride Carbon Dioxide Anion Gap BUN Creatinine Est GFR ( Amer) Est GFR (Non-Af Amer) Random Glucose Calcium Total Bilirubin AST ALT Alkaline Phosphatase Lactate Dehydrogenase 373 Total Creatine Kinase 111 Troponin I < 0.01 Total Protein Albumin Globulin Albumin/Globulin Ratio
--- NOTE | 2019-03-23 10:39 | RAD ---
Date of service: 03/22/2019 HISTORY: chest pain COMPARISON: Chest radiograph dated 01/29/2019 TECHNIQUE: 1 view obtained. FINDINGS: LUNGS: No active pulmonary disease. PLEURA: No significant pleural effusion identified, no pneumothorax apparent. CARDIOVASCULAR: Aortic atherosclerotic calcifications. Cardiomediastinal silhouette stably enlarged. OSSEOUS STRUCTURES: Unchanged. VISUALIZED UPPER ABDOMEN: Normal. OTHER FINDINGS: None. IMPRESSION: No active disease.
[2019-03-23 11:15] LABS: URINE BILIRUBIN NEGATIVE (NEGATIVE); URINE BLOOD SMALL (NEGATIVE); URINE GLUCOSE (UA) NEGATIVE (NEGATIVE); URINE LEUKOCYTE ESTERASE MODERATE Leu/uL (NEGATIVE); URINE PROTEIN 30 mg/dL (<30 mg/dL); URINE UROBILINOGEN 0.2 E.U./dL (<1 E.U./dL)
[2019-03-23 11:26] LABS: URINE APPEARANCE SL CLOUDY (CLEAR); URINE COLOR YELLOW (YELLOW)
[2019-03-23 11:39] LABS: URINE BACTERIA SMALL /hpf; URINE EPITHELIAL CELLS 0 - 2 /hpf (0-5); URINE RBC 0 - 2 /hpf (0-2); URINE WBC TNTC /hpf (0-6)
[2019-03-23 11:48] VITALS: BP 122/77; PULSE 79; RESP 20; TEMP 98.3
--- NOTE | 2019-03-23 11:52 | CARD ---
APPROVED REPORT Date of service: 03/22/2019 EKG Measurement Heart [id number] <Conclusion> Poor data quality, interpretation may be adversely affected Normal sinus rhythm Left anterior fascicular block Prolonged QT Abnormal ECG
--- NOTE | 2019-03-23 20:17 | DS ---
HISTORY OF PRESENT ILLNESS: The patient is 58 years old, who came in with palpitation, was observed overnight. No sign of acute ischemia. The patient can be discharged today. He will see Dr. Amado on Monday. He is being discharged on Lopressor. DISCHARGE DIAGNOSES: 1. Palpitation. 2. Abnormal stress test. 3. Morbid obesity. 4. Hypertension. 5. Hyperlipidemia. 6. Peptic ulcer disease. PLAN: He is being discharged on metoprolol succinate 25 mg daily. He will see Dr. Amado on Monday. He is advised to come back if he has chest pain or palpitation. Marcela Marcos MD
--- NOTE | 2019-03-26 09:02 | HP ---
DATE OF EXAM: 03/23/2019 HISTORY OF PRESENT ILLNESS: The patient is 58 years old. He was seen in office yesterday for some urinary complaints. He was also found to have abnormal stress test, when his learned she got panic and the patient also started to have palpitations, so he came to emergency room last night. I examined the patient, he states he is doing very well. No nausea or vomiting. No diarrhea. Wants to go home. He states he cannot wait until Monday, he will see Dr. Shaikh as outpatient. PAST MEDICAL HISTORY: He has past medical history significant for, 1. Uncontrolled hypertension. 2. Hyperlipidemia. 3. Peptic ulcer disease. 4. Morbid obesity. 5. Chronic degenerative disk disease. 6. Chronic low back pain. ALLERGIES: HE HAS MULTIPLE ALLERGIES INCLUDING APPLE, FIBRATE, GRAPES, ORANGE, PEECH, PEARS, PENICILLIN, TOMATO, ONION, PEPPER, CONTRAST DYE AND PEANUTS. MEDICATIONS: At home, he is on losartan 100 mg daily, atorvastatin 10 mg daily, Protonix 40 daily and metoprolol 25 daily. SOCIAL HISTORY: He works for the . He takes valsartan 320 daily. He is on Crestor 20 mg daily, omeprazole 20 mg daily and Zetia 10 mg daily. PHYSICAL EXAMINATION: GENERAL: The patient is awake, alert and able to communicate. VITAL SIGNS: He is afebrile. Pulse 77, respiration 18 and blood pressure 120/79. LUNGS: Bilateral fair airflow. No rhonchi or crackle. HEART: S1 and S2, audible. ABDOMEN: Soft and nontender. No rebound. No guarding. NEUROLOGIC: The patient is awake, alert and able to communicate. LABORATORY DATA: WBC 7.4, hemoglobin 11.5, hematocrit 35 and platelets 213. PT 12.6 and INR 1.14. Chemistry; sodium 139, potassium 3.9, chloride 107, CO2 of 23, BUN 12, creatinine 1.4 and blood sugar of 122. Urine shows moderate leukocytes. The patient was already started on antibiotic when he came to my office yesterday. ASSESSMENT: 1. Palpitation and chest pain and with abnormal stress test. 2. Hypertension. 3. Morbid obesity. 4. Peptic ulcer disease. 5. Palpitation. PLAN: The patient does not want to stay, he wants to go home. We will reach out to Dr. Shaikh if it is safe to keep him or he should be discharge and he will follow him on Monday and then we will make disposition. Marcela Marcos MD
== END 2019-03-23 14:17 | disposition home or self-care (01) ==
LOC: ED 19:45 → ERH 21:52 → 2RNO 23:26
PROVIDERS: ADMIT Internal Medicine; ATTEND Internal Medicine
DX: R07.9 Chest pain, unspecified (principal); R00.2 Palpitations; E78.00 Pure hypercholesterolemia, unspecified; I10 Essential (primary) hypertension; E78.5 Hyperlipidemia, unspecified; E66.01 Morbid (severe) obesity due to excess calories; Z68.38 Body mass index [BMI] 38.0-38.9, adult; K27.9 Peptic ulcer, site unspecified, unspecified as acute or chronic, without hemorrhage or perforation; R94.39 Abnormal result of other cardiovascular function study
CPT/HCPCS: 36415; 71045; 80053; 81001; 82550; 83615; 84484; 85027; 85610; 85730; 87086; 87181; 93005; 99281; G0378